=== PATIENT | female | born 1945 | race Caucasian/White ===

== ENCOUNTER 2016-12-05 09:57 | Day surgery (SDC) | payer MEDICARE, OTHER ==
[2016-12-05] MEDS ORDERED: LACTATED RINGERS 1,000 ML IV ONE (10:12)
[2016-12-05] MEDS ORDERED: ceFAZolin 1 GM VIAL ONE (10:14)
[2016-12-05] MEDS ORDERED: BUPIVACAINE 0.25%-EPI 1:200000 PF 30 ML VIAL SUBQ ONE ×2 (10:57)
[2016-12-05] MEDS ORDERED: ACETAMINOPHEN 1,000 MG/100 ML VIAL IV ONE (11:13)
[2016-12-05] MEDS ORDERED: KETOROLAC 30 MG/ML VIAL IVP ONE (11:13)
[2016-12-05] MEDS ORDERED: PROPOFOL 200 MG/20 ML VIAL IVP ONE (11:13)
[2016-12-05] MEDS ORDERED: LIDOCAINE-MPF 2% 5 ML VIAL IM ONE (11:13)
== END 2016-12-05 09:58 | disposition home or self-care (01) ==
PROC: 0SPG04Z Removal of Internal Fixation Device from Left Ankle Joint, Open Approach (ICD-10-PCS; principal; 2016-12-05 11:00)
DX: T84.84XA Pain due to internal orthopedic prosthetic devices, implants and grafts, initial encounter (principal); M25.572 Pain in left ankle and joints of left foot; Y83.1 Surgical operation with implant of artificial internal device as the cause of abnormal reaction of the patient, or of later complication, without mention of misadventure at the time of the procedure; I25.2 Old myocardial infarction; K21.9 Gastro-esophageal reflux disease without esophagitis; I25.10 Atherosclerotic heart disease of native coronary artery without angina pectoris; F32.9 Major depressive disorder, single episode, unspecified; I10 Essential (primary) hypertension; E78.5 Hyperlipidemia, unspecified; M19.90 Unspecified osteoarthritis, unspecified site; F41.9 Anxiety disorder, unspecified; G89.29 Other chronic pain; M54.5 Low back pain; Z86.718 Personal history of other venous thrombosis and embolism; Z79.82 Long term (current) use of aspirin; Z87.891 Personal history of nicotine dependence; Z91.041 Radiographic dye allergy status; Z95.5 Presence of coronary angioplasty implant and graft; Z90.49 Acquired absence of other specified parts of digestive tract; Z96.652 Presence of left artificial knee joint; Z87.81 Personal history of (healed) traumatic fracture
CPT/HCPCS: 20680; J0131; J7120

== ENCOUNTER 2017-01-31 08:05 | Outpatient (CLI) | payer MEDICARE, OTHER | END 2017-01-31 08:06 | disposition home or self-care (01) | DX: R01.1 Cardiac murmur, unspecified (principal); I08.2 Rheumatic disorders of both aortic and tricuspid valves ==

== ENCOUNTER 2017-03-06 06:10 | Inpatient (IN) | payer MEDICARE, OTHER ==
[2017-03-06] MEDS ORDERED: ceFAZolin 2 GM/50 ML 50 ML IV ONE (06:41)
[2017-03-06] MEDS ORDERED: LACTATED RINGERS 1,000 ML IV ONE ×2 (07:00→09:38)
[2017-03-06] MEDS ORDERED: NEOSTIGMINE 1 MG/1 ML 10 ML MDV IVP ONE (08:00)
[2017-03-06] MEDS ORDERED: ROCURONIUM 50 MG/5 ML VIAL IVP ONE (08:00)
[2017-03-06] MEDS ORDERED: MORPHINE PF 5 MG/10 ML AMP EP ONE (08:00)
[2017-03-06] MEDS ORDERED: fentaNYL 100 MCG/2 ML VIAL IVP ONE (08:00)
[2017-03-06] MEDS ORDERED: DEXAMETHASONE 4 MG/ML VIAL IVP ONE (08:00)
[2017-03-06] MEDS ORDERED: TRANEXAMIC ACID 1,000 MG/10 ML VIAL IV ONE (08:00)
[2017-03-06] MEDS ORDERED: LIDOCAINE-MPF 2% 5 ML VIAL IM ONE (08:00)
[2017-03-06] MEDS ORDERED: ACETAMINOPHEN 1,000 MG/100 ML VIAL IV ONE (08:00)
[2017-03-06] MEDS ORDERED: ONDANSETRON 4 MG/2 ML VIAL IVP ONE (08:00)
[2017-03-06] MEDS ORDERED: PROPOFOL 200 MG/20 ML VIAL IVP ONE (08:00)
[2017-03-06] MEDS ORDERED: HYDROmorphone 1 MG/ML SYRINGE IVP ONE (08:00)
[2017-03-06] MEDS ORDERED: GLYCOPYRROLATE 1 MG/5 ML VIAL IVP ONE (08:00)
[2017-03-06] MEDS ORDERED: ePHEDrine 50 MG/ML AMP IVP ONE (08:00)
[2017-03-06] MEDS ORDERED: KETOROLAC 30 MG/ML VIAL IVP ONE (08:00)
[2017-03-06] MEDS ORDERED: ROPIVACAINE 0.5% PF 20 ML AMPULE EP ONE (08:00)
[2017-03-06] MEDS ORDERED: KETOROLAC 15 MG/ML VIAL IM ONE (08:50)
[2017-03-06] MEDS ORDERED: ROPIVACAINE 0.5% PF 20 ML AMPULE SUBQ ONE (08:50)
[2017-03-06] MEDS ORDERED: MORPHINE PF 5 MG/10 ML AMP SUBQ ONE (08:56)
[2017-03-06] MEDS ORDERED: EPINEPHrine 1 MG/ML AMP SUBQ ONE (08:57)
[2017-03-06] MEDS ORDERED: SENNA 8.6 MG TABLET PO PRN (09:42)
[2017-03-06] MEDS ORDERED: BISACODYL 10 MG SUPP PR PRN (09:42)
[2017-03-06] MEDS ORDERED: ACETAMINOPHEN 325 MG TABLET PO PRN (09:42)
[2017-03-06] MEDS ORDERED: ALPRAZolam 0.25 MG TABLET PO PRN (09:45)
[2017-03-06] MEDS ORDERED: traZODone 50 MG TABLET PO PRN (09:45)
[2017-03-06] MEDS: HYDROmorphone 1 MG/ML SYRINGE IVP PRN ×3 (09:55→12:46)
[2017-03-06] MEDS: HYDROcod/ACETAM 5/325 MG TABLET PO PRN ×3 (11:23→21:27)
[2017-03-06] MEDS: ceFAZolin 2 GM/50 ML 50 ML IV SCH ×2 (14:09→21:33)
[2017-03-06] MEDS: SODIUM CHLORIDE FLUSH 0.9% 10 ML SYRINGE IVP SCH ×2 (14:10→14:53)
[2017-03-06] MEDS: ATORVASTATIN 10 MG TABLET PO SCH (21:27)
[2017-03-06] MEDS: HYDROXYUREA 500 MG CAPSULE PO SCH (21:28)
[2017-03-06] MEDS: SODIUM CHLORIDE FLUSH 0.9% 10 ML SYRINGE IVP PRN (21:33)
[2017-03-07] MEDS: HYDROcod/ACETAM 5/325 MG TABLET PO PRN ×5 (01:08→18:45)
[2017-03-07] MEDS: PANTOPRAZOLE 40 MG TABLET PO SCH (06:04)
[2017-03-07] MEDS: SODIUM CHLORIDE FLUSH 0.9% 10 ML SYRINGE IVP SCH ×3 (06:04→21:57)
[2017-03-07] MEDS: SERTRALINE 50 MG TABLET PO SCH (08:13)
[2017-03-07] MEDS: CHOLECALCIFEROL 1,000 UNIT TABLET PO SCH (08:13)
[2017-03-07] MEDS: POLYETHYLENE GLYCOL 3350 17 GM PACKET PO SCH (08:13)
[2017-03-07] MEDS: LOSARTAN 50 MG TABLET PO SCH (08:15)
[2017-03-07] MEDS ORDERED: METOPROLOL TARTRATE 25 MG TABLET PO SCH (09:00)
[2017-03-07] MEDS: ASPIRIN 325 MG TABLET PO SCH ×2 (09:22→21:57)
[2017-03-07] MEDS: HYDROmorphone 1 MG/ML SYRINGE IVP PRN ×5 (09:22→21:56)
[2017-03-07] MEDS: SODIUM CHLORIDE FLUSH 0.9% 10 ML SYRINGE IVP PRN ×2 (17:09→19:30)
[2017-03-07] MEDS: ATORVASTATIN 10 MG TABLET PO SCH (21:57)
[2017-03-07] MEDS: METOPROLOL TARTRATE 50 MG TABLET PO SCH (21:57)
[2017-03-07] MEDS: HYDROXYUREA 500 MG CAPSULE PO SCH (21:59)
[2017-03-08] MEDS: ONDANSETRON 4 MG/2 ML VIAL IVP PRN ×2 (01:47→08:19)
[2017-03-08] MEDS: HYDROcod/ACETAM 5/325 MG TABLET PO PRN ×2 (03:46→10:20)
[2017-03-08] MEDS: PANTOPRAZOLE 40 MG TABLET PO SCH (06:04)
[2017-03-08] MEDS: SODIUM CHLORIDE FLUSH 0.9% 10 ML SYRINGE IVP SCH ×3 (06:05→22:05)
[2017-03-08] MEDS: SERTRALINE 50 MG TABLET PO SCH (08:13)
[2017-03-08] MEDS: ASPIRIN 325 MG TABLET PO SCH ×2 (08:13→20:37)
[2017-03-08] MEDS: POLYETHYLENE GLYCOL 3350 17 GM PACKET PO SCH (08:14)
[2017-03-08] MEDS: CHOLECALCIFEROL 1,000 UNIT TABLET PO SCH (08:14)
[2017-03-08] MEDS: DOCUSATE SODIUM 250 MG CAPSULE PO SCH (08:14)
[2017-03-08] MEDS: LOSARTAN 50 MG TABLET PO SCH (08:14)
[2017-03-08] MEDS: CALCIUM CARBONATE CHEW 500 MG TABLET PO SCH ×2 (09:57→20:37)
[2017-03-08] MEDS: HYDROmorphone 1 MG/ML SYRINGE IVP PRN (11:16)
[2017-03-08] MEDS ORDERED: LACTATED RINGERS 1,000 ML IV STA (11:36)
[2017-03-08] MEDS ORDERED: PROCHLORPERAZINE 25 MG SUPP PR PRN (11:38)
[2017-03-08] MEDS: MORPHINE 2 MG/ML SYRINGE IVP PRN ×2 (12:03→19:10)
[2017-03-08] MEDS: oxyCOD/ACETAMIN 5 MG/325 MG TABLET PO PRN ×2 (16:24→22:55)
[2017-03-08] MEDS: ATORVASTATIN 10 MG TABLET PO SCH (20:37)
[2017-03-08] MEDS: METOPROLOL TARTRATE 50 MG TABLET PO SCH (20:37)
[2017-03-08] MEDS: HYDROXYUREA 500 MG CAPSULE PO SCH (20:41)
[2017-03-09] MEDS: MORPHINE 2 MG/ML SYRINGE IVP PRN ×2 (02:24→08:52)
[2017-03-09] MEDS: SODIUM CHLORIDE FLUSH 0.9% 10 ML SYRINGE IVP PRN ×2 (02:24→08:52)
[2017-03-09] MEDS: oxyCOD/ACETAMIN 5 MG/325 MG TABLET PO PRN ×2 (05:35→09:45)
[2017-03-09] MEDS: PANTOPRAZOLE 40 MG TABLET PO SCH (05:35)
[2017-03-09] MEDS: SODIUM CHLORIDE FLUSH 0.9% 10 ML SYRINGE IVP SCH (05:35)
[2017-03-09] MEDS: CHOLECALCIFEROL 1,000 UNIT TABLET PO SCH (09:43)
[2017-03-09] MEDS: ASPIRIN 325 MG TABLET PO SCH (09:43)
[2017-03-09] MEDS: DOCUSATE SODIUM 250 MG CAPSULE PO SCH (09:44)
[2017-03-09] MEDS: LOSARTAN 50 MG TABLET PO SCH (09:44)
[2017-03-09] MEDS: SERTRALINE 50 MG TABLET PO SCH (09:44)
[2017-03-09] MEDS: CALCIUM CARBONATE CHEW 500 MG TABLET PO SCH (09:45)
[2017-03-09] MEDS: POLYETHYLENE GLYCOL 3350 17 GM PACKET PO SCH (09:45)
== END 2017-03-09 11:45 | disposition home or self-care (01) | DRG 470 ==
PROC: 0SRC0J9 Replacement of Right Knee Joint with Synthetic Substitute, Cemented, Open Approach (ICD-10-PCS; principal; 2017-03-06 07:30)
DX: M17.11 Unilateral primary osteoarthritis, right knee (principal); I11.9 Hypertensive heart disease without heart failure; I25.10 Atherosclerotic heart disease of native coronary artery without angina pectoris; E78.5 Hyperlipidemia, unspecified; F32.9 Major depressive disorder, single episode, unspecified; K21.9 Gastro-esophageal reflux disease without esophagitis; K59.00 Constipation, unspecified; M54.9 Dorsalgia, unspecified; G89.29 Other chronic pain; H53.9 Unspecified visual disturbance; Z96.652 Presence of left artificial knee joint; Z95.5 Presence of coronary angioplasty implant and graft; I25.2 Old myocardial infarction; Z87.442 Personal history of urinary calculi; Z86.718 Personal history of other venous thrombosis and embolism; Z87.891 Personal history of nicotine dependence

== ENCOUNTER 2017-08-28 10:01 | Emergency (ER) | payer MEDICARE, OTHER ==
--- NOTE | 2017-08-28 12:12 | ED Physician Documentation ---
PD HPI BACK PAIN - Stated complaint Stated Complaint: HIP/BACK PX - Chief complaint Chief Complaint: Back Pain - History obtained from History obtained from: Patient - History of Present Illness Timing - onset: How many days ago (2-3) Timing - duration: Days Timing - details: Gradual onset (no noted injury nor fall, has had some low back pain in the past. This is progressively worse the past few days, left low back radiating to left hip. No weakness nor numbness in legs.), Still present Location: Lower, Left Quality: Pain, Aching. No: Spasm, Tearing Associated symptoms: No: Fever, Weakness, Numbness, Incontinent of urine Improves with: No: Rest Worsened by: Movement, Twisting Contributing factors: No: Twisting, Trauma Recently seen: Not recently seen Review of Systems Constitutional: denies: Fever, Chills Cardiac: denies: Chest pain / pressure GI: denies: Abdominal Pain Skin: denies: Rash, Lesions Musculoskeletal: reports: Back pain. 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) Cardiovascular: Coronary stent HEENT: Cataracts, Tonsil/Adenoidectomy Derm: Skin cancer surgery - Present Medications Home Medications: Ambulatory Orders Medication Instructions Recorded Confirmed Alprazolam [Xanax] 1 mg PO Q8HR PRN 03/26/13 08/28/17 Sertraline HCl [Zoloft] 100 mg PO DAILY 03/26/13 08/28/17 traZODone [Desyrel] 50 mg PO HS PRN 03/26/13 08/28/17 Hydroxyurea [Hydrea] 500 mg PO QPM 04/24/13 08/28/17 Omeprazole [PriLOSEC] 20 mg PO DAILY 08/06/14 08/28/17 Cholecalciferol (Vitamin D3) 2,000 unit PO DAILY 10/18/15 08/28/17 [Vitamin D3] Mv-Mn/FA/Vit K1/Lycop/Lut/Zeax 1 each PO DAILY 10/18/15 08/28/17 [Ocuvite Eye + Multi Tablet] Simvastatin 20 mg PO QPM 10/18/15 08/28/17 Telmisartan [Micardis] 80 mg PO DAILY 10/18/15 08/28/17 Metoprolol Succinate 50 mg PO DAILY 03/06/17 08/28/17 Aspirin [Román] 325 mg PO ONCE #30 tablet 03/09/17 08/28/17 Dexamethasone [Decadron] 4 mg PO DAILY #5 tablet 08/28/17 Methocarbamol [Robaxin] 500 mg PO Q6H PRN #25 tablet 08/28/17 Oxycodone HCl/Acetaminophen 1 each PO Q6H PRN #20 tablet 08/28/17 [Percocet 5-325 mg Tablet] - Allergies Allergies/Adverse Reactions: Allergies Allergy/AdvReac Type Severity Reaction Status Date / Time Iodinated Contrast- Oral and Allergy Severe Anaphylaxis Verified 03/06/17 09:50 IV Dye IV contrast Allergy Severe Anaphylaxis Uncoded 10/18/15 10:57 - Social History Does the pt smoke?: No Smoking Status: Never smoker Does the pt drink ETOH?: No Does the pt have substance abuse?: No - Immunizations Immunizations are current?: No Immunizations: TDAP >10years/unknown PD ED PE NORMAL - Vitals Vital signs reviewed: Yes - General General: Alert and oriented X 3, Well developed/nourished - Cardiac Cardiac: RRR, No murmur - Respiratory Respiratory: Clear bilaterally - Abdomen Abdomen: Soft, Non tender - Back Back: Other (tender lower lumbar area both sides, but also tender to percussion in middle. ) - Derm Derm: Normal color, Warm and dry, No rash - Extremities Extremities: No edema, No calf tenderness / cord - Neuro Neuro: No motor deficit, No sensory deficit Results - Vitals Vitals: Vital Signs - 24 hr 08/28/17 08/28/17 08/28/17 10:06 11:56 14:26 Temperature 36.1 C L 36.0 C L 36.2 C L Heart Rate 62 55 L 56 L Respiratory 18 15 12 Rate Blood Pressure 170/76 H 135/78 H 155/79 H O2 Saturation 98 99 99 Oxygen O2 Source Room air - Rads (name of study) lumbar CT Radiology: Prelim report reviewed (degenerative changes, no fractures/bone lesions) PD MEDICAL DECISION MAKING - ED course Complexity details: reviewed results (diffuse degenerative changes; no compression fractures, bone lesions. ), considered differential, d/w patient Departure - Departure Disposition: 01 Home, Self Care Clinical Impression: Acute exacerbation of chronic low back pain Condition: Stable Record reviewed to determine appropriate education?: Yes Instructions: ED Low Back Pain Injury Follow-Up: Vidal Chan DO [Primary Care Provider] - Prescriptions: Dexamethasone [Decadron] 4 mg PO DAILY #5 tablet Methocarbamol [Robaxin] 500 mg PO Q6H PRN #25 tablet PRN Reason: Spasms Oxycodone HCl/Acetaminophen [Percocet 5-325 mg Tablet] 1 each PO Q6H PRN #20 tablet PRN Reason: Pain Comments: For the exacerbation of the back pain currently, use Decadron daily for 5 more days as an anti-inflammatory. Be sure to take it with some food. Methocarbamol for muscle spasms and stiffness 3-4 times a day. Use Tylenol or Percocet if needed for pain. I would suggest mechanical treatment such as chiropractic or massage or physical therapy as well. Follow-up with your primary care if not improved over the next week. Call for an appointment. Discharge Date/Time: 08/28/17 14:38
[2017-08-28] MEDS ORDERED: oxyCOD/ACETAMIN 5 MG/325 MG TABLET PO ONE (12:36)
[2017-08-28] MEDS ORDERED: METHOCARBAMOL 500 MG TABLET PO ONE (12:36)
[2017-08-28] MEDS ORDERED: DEXAMETHASONE 10 MG/ML VIAL ONE (12:36)
[2017-08-28] MEDS ORDERED: CHERRY SYRUP 10 ML UDC PO ONE (12:37)
[2017-08-28] MEDS: METHOCARBAMOL 500 MG TABLET PO STA (12:45)
[2017-08-28] MEDS: oxyCOD/ACETAMIN 5 MG/325 MG TABLET PO STA (12:45)
[2017-08-28] MEDS: DEXAMETHASONE 10 MG/ML VIAL PO STA (12:45)
--- NOTE | 2017-08-28 13:53 | CT Report ---
EXAM: CT LUMBAR SPINE WITHOUT CONTRAST EXAM DATE: 08/28/2017 12:48 PM. CLINICAL HISTORY: 72-year-old woman with new onset left lumbar pain a few days ago. COMPARISONS: CT of the abdomen and pelvis on 12/25/2009. TECHNIQUE: Thin-section axial images were acquired of the lumbar spine from T12 to S1 without contras t. Post-processing: Coronal and sagittal reformats. Other: None. In accordance with CT protocol optimization, one or more of the following dose reduction techniques w ere utilized for this exam: automated exposure control, adjustment of mA and/or KV based on patient s ize, or use of iterative reconstructive technique. FINDINGS: Alignment: Convex left scoliosis centered at L2-L3 is present, as on the 2010 CT. Left lateral listhe sis of L1 on L2 measures approximately 9 mm and left lateral listhesis of L3 and L4 measures approxim ately 8 mm. Bones: Five qso-sjq-[id number] lumbar vertebral bodies are present. No fractures or bone lesions. Degene rative endplate sclerosis is present at L1-L2, L2-L3, and L3-L4 on the left and L4-L5 on the right, c orresponding to the concave aspects of the scoliosis. Schmorl's nodes are present in the superior and inferior endplates of L4. Disk Levels/Facets: T12-L1: There is mild disk height loss, right side worse than left. Mild vacuum disk phenomenon is pr esent. No significant narrowing of the bony central canal or neural foramina. L1-L2: There is severe disk height loss. No significant narrowing of the bony central canal. Facet hy pertrophy results in mild to moderate narrowing of the left neural foramen without significant narrow ing on the right. L2-L3: There is moderate to severe disk height loss, left side worse and right. Posterior osteophyte results in mild narrowing of the bony central canal. Facet hypertrophy and disk osteophyte complex in the subarticular spaces result in mild narrowing of the left neural foramen without significant narr owing on the right. L3-L4: There is moderate to severe disk height loss with vacuum disk phenomenon. Facet hypertrophy an d posterior osteophyte results in at least moderate narrowing of the bony central canal. Facet hypert rophy and disk osteophyte complex in the subarticular spaces result in moderate narrowing of the left neural foramen and mild narrowing on the right. L4-L5: There is moderate to severe disk height loss, right side worse than left, and vacuum disk phen omenon. Facet hypertrophy and posterior disk osteophyte complex result in mild to moderate narrowing of the bony central canal. Facet hypertrophy and disk osteophyte complex in the subarticular spaces r esult in mild to moderate right neural foramen and mild narrowing on the left. L5-S1: There is solid bony fusion across the disk space. Status post posterior decompression with montero inectomy. No significant central canal stenosis. Disk osteophyte complex in the subarticular space re sults in mild narrowing of the neural foramina bilaterally. Musculature: Post surgical changes are present in the posterior soft tissues of the lower lumbar spin e. Other: Status post cholecystectomy. Atherosclerotic calcifications are present in the major arteries. IMPRESSION: 1. No acute fracture or malalignment. 2. Convex right degenerative scoliosis centered at L2-L3 with associated lateral listhesis at. L1-L2 and L3-L4. 3. Degenerative changes result in the following: - L1-L2: Mild to moderate narrowing of the left neural foramen. - L2-L3: Mild narrowing of the bony central canal. Mild narrowing of the left neural foramen. - L3-L4: At least moderate narrowing of the bony central canal. Moderate narrowing of the left neural foramen and mild narrowing on the right. - L4-L5: Mild to moderate narrowing of the bony central canal. Mild to moderate narrowing of the righ t neural foramen and mild narrowing on the left. - L5-S1: Status post posterior decompression with laminectomy. Mild narrowing of the neural foramina bilaterally. [facility] Referring Provider Line: [phone] SITE ID: [id number]
[2017-08-28 14:27] VITALS: BP 155/79
== END 2017-08-28 14:38 | disposition home or self-care (01) ==
LOC: ED 10:01
DX: M54.5 Low back pain (principal); G89.29 Other chronic pain; M25.552 Pain in left hip; I10 Essential (primary) hypertension; I25.2 Old myocardial infarction; E78.00 Pure hypercholesterolemia, unspecified; K21.9 Gastro-esophageal reflux disease without esophagitis; M19.90 Unspecified osteoarthritis, unspecified site; Z85.828 Personal history of other malignant neoplasm of skin; Z87.442 Personal history of urinary calculi; Z79.82 Long term (current) use of aspirin
CPT/HCPCS: 72131; 99283; A9270

== ENCOUNTER 2020-03-10 22:10 | Emergency (ER) | payer MEDICARE, OTHER ==
--- NOTE | 2020-03-10 22:26 | ED Physician Documentation ---
PD HPI BACK PAIN - Stated complaint Stated Complaint: R BACK PAIN - Chief complaint Chief Complaint: Back Pain - History obtained from History obtained from: Patient - History of Present Illness Timing - onset: Yesterday Timing - duration: Days (2) Timing - details: Gradual onset, Still present, Waxing and waning Location: Lower, Right Quality: Pain, Spasm, Aching Associated symptoms: No: Fever, Weakness, Numbness, Incontinent of urine Improves with: No: Rest Worsened by: Movement, Twisting. No: Lifting, Palpation Contributing factors: No: Lifting, Twisting, Trauma Similar symptoms before: Has not had sx before (She has had back surgery remotely many years ago. She has intermittent back pain episodes but this is more consistently not associated with direct moving and was not provoked by lifting or movement.) Recently seen: Not recently seen Review of Systems Constitutional: denies: Fever, Chills Nose: denies: Rhinorrhea / runny nose, Congestion Throat: denies: Sore throat Cardiac: denies: Chest pain / pressure, Pedal edema, Calf pain Respiratory: denies: Cough GI: denies: Abdominal Pain, Nausea, Vomiting, Diarrhea, Bloody / black stool : denies: Dysuria, Frequency, Vaginal bleeding Skin: denies: Rash, Lesions Neurologic: denies: Focal weakness, Numbness, Near syncope PD PAST MEDICAL HISTORY - Past Medical History Past Medical History: Yes Cardiovascular: Hypertension, High cholesterol, [place] Respiratory: None Endocrine/Autoimmune: None GI: GERD : Kidney stones HEENT: Chronic vision loss, Chronic sinusitis, Other Psych: Depression, Anxiety Musculoskeletal: Osteoarthritis, Chronic back pain Derm: None - Past Surgical History Past Surgical History: Yes General: Cholecystectomy, Other Ortho: Knee replacement, Spine surgery, 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) Cardiovascular: Coronary stent HEENT: Cataracts, Tonsil/Adenoidectomy Derm: Skin cancer surgery - Present Medications Home Medications: Ambulatory Orders Medication Instructions Recorded Confirmed Alprazolam [Xanax] 1 mg PO Q8HR PRN 03/26/13 03/10/20 Sertraline HCl [Zoloft] 100 mg PO DAILY 03/26/13 03/10/20 traZODone [Desyrel] 50 mg PO HS PRN 03/26/13 03/10/20 Omeprazole [PriLOSEC] 20 mg PO DAILY 08/06/14 03/10/20 Cholecalciferol (Vitamin D3) 2,000 unit PO DAILY 10/18/15 03/10/20 [Vitamin D3] Simvastatin 20 mg PO QPM 10/18/15 03/10/20 Telmisartan [Micardis] 80 mg PO DAILY 10/18/15 03/10/20 Metoprolol Succinate 50 mg PO DAILY 03/06/17 03/10/20 Aspirin [Román] 325 mg PO ONCE #30 tablet 03/09/17 03/10/20 Oxycodone HCl/Acetaminophen 1 each PO Q6H PRN #20 tablet 08/28/17 03/10/20 [Percocet 5-325 mg Tablet] Hydroxyurea [Hydrea] 500 mg PO DAILY 11/10/19 03/10/20 Hydrocodone/Acetaminophen 1 each PO TID PRN #15 tablet 03/11/20 [Hydrocodon-Acetaminophen 5-325] Naproxen 375 mg PO BID #20 tablet 03/11/20 - Allergies Allergies/Adverse Reactions: Allergies Allergy/AdvReac Type Severity Reaction Status Date / Time Iodinated Contrast Media Allergy Severe Anaphylaxis Verified 03/10/20 22:18 IV contrast Allergy Severe Anaphylaxis Uncoded 03/10/20 22:18 - Social History Does the pt smoke?: No Smoking Status: Never smoker Does the pt drink ETOH?: No Does the pt have substance abuse?: No - Immunizations Immunizations are current?: No Immunizations: TDAP >10years/unknown - POLST Patient has POLST: No PD ED PE NORMAL - Vitals Vital signs reviewed: Yes - General General: Alert and oriented X 3, Well developed/nourished, Other - Cardiac Cardiac: RRR, No murmur - Respiratory Respiratory: Clear bilaterally - Abdomen Abdomen: Soft, Non tender - Female Female : Deferred - Rectal Rectal: Deferred - Back Back: No CVA TTP, No spinal TTP (she is mildly tender in the right paralumbar area muscles. No redness nor sores. ) - Derm Derm: Normal color, Warm and dry, No rash - Extremities Extremities: No edema, No calf tenderness / cord - Neuro Neuro: Alert and oriented X 3, No motor deficit, No sensory deficit, Normal speech Results - Vitals Vitals: Vital Signs - 24 hr 03/10/20 03/10/2020 22:10 23:40 00:19 Temperature 36.9 C 36.7 C Heart Rate 77 67 71 Respiratory 18 16 16 Rate Blood Pressure 195/86 H 161/71 H 165/63 H O2 Saturation 95 95 95 Oxygen O2 Source Room air - Labs Labs: Laboratory Tests 03/10/20 22:50 Urine Color YELLOW Urine Clarity CLEAR Urine pH 6.0 Ur Specific [place] >=1.030 H Urine Protein NEGATIVE Urine Glucose (UA) NEGATIVE Urine Ketones NEGATIVE Urine Occult Blood NEGATIVE Urine Nitrite NEGATIVE Urine Bilirubin NEGATIVE Urine Urobilinogen 0.2 (NORMAL) Ur Leukocyte Esterase NEGATIVE Ur Microscopic Review NOT INDICATED Urine Culture Comments NOT INDICATED - Rads (name of study) KUB CT Radiology: Prelim report reviewed (no stones nor renal abnormal. NO fractures/acute bony process. ), See rad report PD MEDICAL DECISION MAKING - ED course Complexity details: reviewed results, re-evaluated patient (Improved with medicines here in the ER. Presume musculoskeletal pain given normal urine and CT scan.), considered differential (She has some pain with motion and slight tenderness in the muscles but not as notably as I do expect from just muscular pain. She has a more consistent pain at rest as well. We will get a urine and CT to ensure no stones or other process.), d/w patient Departure - Departure Disposition: 01 Home, Self Care Clinical Impression: Acute right-sided low back pain Qualifiers: Sciatica presence: without sciatica Qualified Code(s): M54.5 - Low back pain Condition: Stable Record reviewed to determine appropriate education?: Yes Instructions: ED Low Back Pain Injury Follow-Up: Vidal Chan DO [Primary Care Provider] - Prescriptions: Hydrocodone/Acetaminophen [Hydrocodon-Acetaminophen 5-325] 1 each PO TID PRN #15 tablet PRN Reason: pain Naproxen 375 mg PO BID #20 tablet Comments: Your urine test is clear. Your CT scan did not show any obvious acute cause for the pain. Presume it is musculoskeletal at this point and treated with some anti-inflammatories such as naproxen. To that add Tylenol 4 times a day or hydrocodone for worse pain. Recheck if not improving well over the next several days to a week. Your recheck or follow-up with your primary care if not improved well or if other symptoms develop. Discharge Date/Time: 03/11/20 00:22
[2020-03-10 23:05] LABS: BILIRUBIN,URINE NEGATIVE (NEGATIVE); GLUCOSE, URINE (UA) NEGATIVE (NEGATIVE); KETONES,URINE (UA) NEGATIVE (NEGATIVE); LEUKOCYTE ESTERASE, URINE NEGATIVE (NEGATIVE); NITRITE,URINE NEGATIVE (NEGATIVE); OCCULT BLOOD,URINE NEGATIVE (NEGATIVE); PROTEIN,URINE NEGATIVE (NEGATIVE); UROBILINOGEN,URINE 0.2 (NORMAL) E.U./dL (NORMAL)
[2020-03-10] MEDS: KETOROLAC 30 MG/ML VIAL IM STA (23:06)
[2020-03-10] MEDS: HYDROcod/ACETAM 5/325 MG TABLET PO STA (23:06)
[2020-03-10 23:08] LABS: CLARITY,URINE CLEAR (CLEAR)
--- NOTE | 2020-03-10 23:55 | CT Report ---
Reason: right flank to lumbar area pain; no injury Procedure Date: 03/10/2020 Accession Number: [id number] / [id number] Procedure: CT - Abdomen/Pelvis WO CPT Code: Final Report FULL RESULT: EXAM: CT ABDOMEN AND PELVIS (CT KUB) EXAM DATE: 03/10/2020 11:08 PM. CLINICAL HISTORY: Right flank to lumbar area pain; no injury. COMPARISONS: ABD/PEL 12/25/2009 9:15 AM. TECHNIQUE: Routine axial helical CT imaging was performed through the abdomen and pelvis without IV contrast. Reconstructions: Coronal and sagittal. In accordance with CT protocol optimization, one or more of the following dose reduction techniques were utilized for this exam: automated exposure control, adjustment of mA and/or KV based on patient size, or use of iterative reconstructive technique. FINDINGS: Lung Bases: Unremarkable. Right Kidney/Ureter: No stones, hydronephrosis, or hydroureter. No perinephric fat stranding. Left Kidney/Ureter: No stones, hydronephrosis, or hydroureter. No perinephric fat stranding. Other Solid Organs: The liver is unremarkable. There are cysts in the dome of the liver smaller and less conspicuous than on the prior study. The spleen is enlarged similar to the prior exam. The pancreas is unremarkable. There are hypertrophic changes of the left adrenal gland similar to the prior exam. No renal masses. Gallbladder/Bile Ducts: Resected. Peritoneal Cavity: No free fluid, free air or hari adenopathy. Bowel is grossly unremarkable. Pelvic Organs: No bladder stones or wall thickening. Noncontrast images of the visualized pelvic organs are unremarkable. Vasculature: Unremarkable. Other: There are degenerative changes of the lumbar spine and scoliosis of the thoracolumbar spine. IMPRESSION: 1. No evidence for renal calculi. 2. Scoliosis and degenerative changes of the lumbar spine. [facility]
[2020-03-11] MEDS: HYDROcod/ACET 5/325 Prepack 4 PO STA (00:15)
[2020-03-11 00:20] VITALS: BP 165/63
== END 2020-03-11 00:22 | disposition home or self-care (01) ==
LOC: ED 22:10
DX: M54.5 Low back pain (principal); I10 Essential (primary) hypertension; I25.2 Old myocardial infarction
CPT/HCPCS: 74176; 81003; 96372; 99284; A9270; 81001; 87086

== ENCOUNTER 2020-03-27 20:36 | Emergency (ER) | payer MEDICARE, OTHER ==
--- NOTE | 2020-03-27 21:14 | ED Physician Documentation ---
History of Present Illness - Stated complaint Stated Complaint: LT FOOT PX - Chief complaint Chief Complaint: Ext Problem - History obtained from History obtained from: Patient - History of Present Illness Timing: Today Pain level max: 8 Pain level now: 6 - Additonal information Additional information: 74-year-old female with left foot pain today. Does not recall any injury. Worse with walking, better with rest. Took Tylenol without relief. States she feels that the foot is swollen. No fever. No redness. 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) Cardiovascular: Coronary stent HEENT: Cataracts, Tonsil/Adenoidectomy Derm: Skin cancer surgery - Present Medications Home Medications: Ambulatory Orders Medication Instructions Recorded Confirmed Alprazolam [Xanax] 1 mg PO Q8HR PRN 03/26/13 03/23/20 Sertraline HCl [Zoloft] 100 mg PO DAILY 03/26/13 03/23/20 traZODone [Desyrel] 50 mg PO HS PRN 03/26/13 03/23/20 Omeprazole [PriLOSEC] 20 mg PO DAILY 08/06/14 03/23/20 Simvastatin 20 mg PO QPM 10/18/15 03/23/20 Telmisartan [Micardis] 80 mg PO DAILY 10/18/15 03/23/20 Metoprolol Succinate 50 mg PO DAILY 03/06/17 03/23/20 Oxycodone HCl/Acetaminophen 1 each PO Q6H PRN #20 tablet 08/28/17 03/23/20 [Percocet 5-325 mg Tablet] Hydroxyurea [Hydrea] 1,000 mg PO DAILY 11/10/19 03/23/20 Hydrocodone/Acetaminophen 1 each PO TID PRN #15 tablet 03/11/20 03/23/20 [Hydrocodon-Acetaminophen 5-325] Naproxen 375 mg PO BID #20 tablet 03/11/20 03/23/20 Anagrelide HCl 1 mg PO DAILY 03/23/20 03/23/20 Aspirin [Adult Aspirin Regimen] 81 mg PO DAILY 03/23/20 03/23/20 Hydrocodone/Acetaminophen 1 - 2 each PO Q6H PRN #14 tablet 03/27/20 [Hydrocodon-Acetaminophen 5-325] - Allergies Allergies/Adverse Reactions: Allergies Allergy/AdvReac Type Severity Reaction Status Date / Time Iodinated Contrast Media Allergy Severe Anaphylaxis Verified 03/27/20 20:41 IV contrast Allergy Severe Anaphylaxis Uncoded 03/27/20 20:41 - Social History Does the pt smoke?: No Smoking Status: Never smoker Does the pt drink ETOH?: No Does the pt have substance abuse?: No - Immunizations Immunizations are current?: No Immunizations: TDAP >10years/unknown - POLST Patient has POLST: No PD ED PE NORMAL - Vitals Vital signs reviewed: Yes - General General: Alert and oriented X 3, No acute distress - HEENT HEENT: Moist mucous membranes - Neck Neck: Supple, no meningeal sign - Derm Derm: Warm and dry - Extremities Extremities: Other (L foot - mild diffuse TTP. no deformity. NVI. no erythema or warmth.) - Neuro Neuro: Alert and oriented X 3 Results - Vitals Vitals: Vital Signs - 24 hr 03/27/20 03/27/20 20:41 22:05 Temperature 36.5 C Heart Rate 74 75 Respiratory 18 20 Rate Blood Pressure 151/88 H 170/96 H O2 Saturation 98 97 Oxygen O2 Source Room air - Rads (name of study) Left foot x-ray Radiology: Prelim report reviewed, EMP read contemporaneously, See rad report (Osteopenia without acute fracture or abnormality) PD MEDICAL DECISION MAKING - ED course Complexity details: reviewed results, re-evaluated patient, considered differential, d/w patient ED course: Placed in a walking boot for comfort. Unclear etiology of her symptoms. We will trial on pain medication for home as well. If she fails to improve over the next few days, she will return for evaluation. No evidence of infection, gout, displaced fracture. Patient counseled regarding signs and symptoms for which I believe and urgent re-evaluation would be necessary. Patient with good understanding of and agreement to plan and is comfortable going home at this time This document was made in part using voice recognition software. While efforts are made to proofread this document, sound alike and grammatical errors may occur. Departure - Departure Disposition: 01 Home, Self Care Clinical Impression: Foot pain, left Condition: Good Instructions: ED Joint Pain, ED Sprain Foot Follow-Up: Vidal Chan DO [Primary Care Provider] - Within 1 week Prescriptions: Hydrocodone/Acetaminophen [Hydrocodon-Acetaminophen 5-325] 1 - 2 each PO Q6H PRN #14 tablet PRN Reason: pain Comments: Wear the boot as needed for comfort. Return if you worsen. Your x-ray does not show any acute abnormalities today, but you do have arthritis in the foot. Do not drink alcohol or drive while on narcotic pain medicine. Note that many narcotic pain relievers also contain tylenol/acetaminophen. Please ensure that your total dose of acetaminophen from all sources does not exceed 3 grams (3000mg) per day. You may constipated on this medication, take a stool softener such as "Colace" twice a day while you are on it. Also recommend a [id number] laxative such as senna or MiraLAX any day that you do not have a bowel movement. If you received narcotic pain medication in the emergency department, do not drive or operate machinery for the next 24 hours. Discharge Date/Time: 03/27/20 22:17
[2020-03-27] MEDS ORDERED: HYDROcod/ACETAM 5/325 MG TABLET PO STA (21:46)
--- NOTE | 2020-03-27 21:49 | XRAY Report ---
Reason: L foot pain Procedure Date: 03/27/2020 Accession Number: [id number] / [id number] Procedure: XR - Foot 3 View LT CPT Code: Final Report FULL RESULT: EXAM: LEFT FOOT RADIOGRAPHY EXAM DATE: 03/27/2020 09:33 PM. CLINICAL HISTORY: L foot pain. COMPARISON: FOOT 3 VIEW LT 06/11/2015 5:00 PM. TECHNIQUE: 3 views. FINDINGS: Bones: Patchy osteopenia. No fractures or bone lesions. Joints: Normal. No subluxations. Soft Tissues: Normal. No soft tissue swelling. IMPRESSION: Patchy osteopenia. No acute osseous or articular abnormality. [facility]
[2020-03-27 22:16] VITALS: BP 170/96
== END 2020-03-27 22:17 | disposition home or self-care (01) ==
LOC: ED 20:36
DX: M79.672 Pain in left foot (principal); I10 Essential (primary) hypertension
CPT/HCPCS: 73630; 99283; 99284; A9270

== ENCOUNTER 2020-07-07 15:14 | Outpatient (CLI) | payer MEDICARE, OTHER ==
[2020-07-07 15:31] LABS: BASOPHILS # (AUTO) 0.1 10^3/uL (0.0-0.1); BASOPHILS % (AUTO) 0.9 %; EOSINOPHILS % (AUTO) 0.3 %; HGB - HEMOGLOBIN 16.9 g/dL (12.0-16.0); LYMPHOCYTES # (AUTO) 0.6 10^3/uL (1.5-3.5); LYMPHOCYTES % (AUTO) 5.4 %; MEAN CORPUSCULAR HEMOGLOBIN 32.3 pg (27.0-31.0); MEAN CORPUSCULAR VOLUME 92.2 fL (81.0-99.0); MEAN PLATELET VOLUME 9.6 fL (7.9-10.8); MONOCYTES # (AUTO) 0.1 10^3/uL (0.0-1.0); MONOCYTES % (AUTO) 0.6 %; NEUTROPHILS # (AUTO) 9.6 10^3/uL (1.5-6.6); NEUTROPHILS % (AUTO) 92.3 %; RED BLOOD COUNT 5.24 10^6/uL (4.20-5.40); RED CELL DISTRIBUTION WIDTH 14.1 % (12.0-15.0); WHITE BLOOD COUNT 10.4 x10^3/uL (4.8-10.8)
[2020-07-07 15:36] LABS: PLT - PLATELET COUNT 909 10^3/uL (130-450)
[2020-07-07 15:49] LABS: ALBUMIN 5.1 g/dL (3.2-5.5); ALBUMIN/GLOBULIN RATIO 1.8 (1.0-2.2); ALKALINE PHOSPHATASE 78 IU/L (42-121); ALT ALANINE AMINOTRANSFERASE 27 IU/L (10-60); AST ASPARTATE AMINOTRANSFERASE 32 IU/L (10-42); BILIRUBIN,TOTAL 1.5 mg/dL (0.2-1.0); BUN - BLOOD UREA NITROGEN 17 mg/dL (6-20); CALCIUM 10.2 mg/dL (8.5-10.3); CARBON DIOXIDE - CO2 21 mmol/L (21-32); CHLORIDE 102 mmol/L (101-111); CREATININE 0.8 mg/dL (0.4-1.0); GLUCOSE 190 mg/dL (70-100); SODIUM 137 mmol/L (135-145); TOTAL PROTEIN 7.9 g/dL (6.7-8.2)
[2020-07-07 15:50] LABS: CRP - C-REACTIVE PROTEIN < 1.0 mg/dL (0-1.0)
== END 2020-07-07 15:15 | disposition home or self-care (01) ==
LOC: LAB 15:14
PROVIDERS: ATTEND Physician Assistant
DX: M79.672 Pain in left foot (principal); D47.3 Essential (hemorrhagic) thrombocythemia; I10 Essential (primary) hypertension
CPT/HCPCS: 36415; 80053; 85025; 85651; 86140

== ENCOUNTER 2020-07-07 15:41 | Emergency (ER) | payer MEDICARE, OTHER ==
--- NOTE | 2020-07-07 16:19 | ED Physician Documentation ---
History of Present Illness - Stated complaint Stated Complaint: LT FOOT RODRIGUEZ/STINGS - Chief complaint Chief Complaint: Ext Problem - Additonal information Additional information: 75-year-old female presents to the emergency department for evaluation of left foot pain. She was seen for similar 4 days ago and had x-rays that suggested arthritis. Since being seen she feels that the pain is worsening. Especially on the sole of the left foot. She has no swelling or erythema. She has no open sores or lesions. She does have a history of thrombocytosis and does see hematology oncology. However with this history she does not have any history of DVTs or arterial insufficiency. 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 surgery) Cardiovascular: Coronary stent HEENT: Cataracts, Tonsil/Adenoidectomy Derm: Skin cancer surgery - Present Medications Home Medications: Ambulatory Orders Medication Instructions Recorded Confirmed Alprazolam [Xanax] 1 mg PO Q8HR PRN 03/26/13 07/03/20 Sertraline HCl [Zoloft] 100 mg PO DAILY 03/26/13 07/03/20 traZODone [Desyrel] 50 mg PO HS PRN 03/26/13 07/03/20 Omeprazole [PriLOSEC] 20 mg PO DAILY 08/06/14 07/03/20 Simvastatin 20 mg PO QPM 10/18/15 07/03/20 Telmisartan [Micardis] 80 mg PO DAILY 10/18/15 07/03/20 Metoprolol Succinate 50 mg PO DAILY 03/06/17 07/03/20 Hydroxyurea [Hydrea] 1,000 mg PO DAILY 11/10/19 07/03/20 Naproxen 375 mg PO BID #20 tablet 03/11/20 07/03/20 Aspirin [Adult Aspirin Regimen] 81 mg PO DAILY 03/23/20 07/03/20 Anagrelide HCl 1 mg PO BID #60 06/01/20 07/03/20 Hydrocodone/Acetaminophen 1 - 2 tab PO Q6H PRN #10 tablet 07/03/20 [Hydrocodone-Acetamin 5-325 mg] Hydrocodone/Acetaminophen 1 each PO BID PRN #10 tablet 07/07/20 [Hydrocodone-Acetamin 5-325 mg] - Allergies Allergies/Adverse Reactions: Allergies Allergy/AdvReac Type Severity Reaction Status Date / Time Iodinated Contrast Media Allergy Severe Anaphylaxis Verified 07/07/20 16:02 IV contrast Allergy Severe Anaphylaxis Uncoded 07/07/20 16:02 - Social History Does the pt smoke?: No Smoking Status: Never smoker Does the pt drink ETOH?: No Does the pt have substance abuse?: No - Immunizations Immunizations are current?: No Immunizations: TDAP >10years/unknown - POLST Patient has POLST: No PD ED PE NORMAL - General General: Alert and oriented X 3, No acute distress, Well developed/nourished - Neck Neck: Supple, no meningeal sign - Cardiac Cardiac: RRR, No murmur - Respiratory Respiratory: No respiratory distress - Abdomen Abdomen: Normal bowel sounds, Soft - Derm Derm: Normal color, Warm and dry - Extremities Extremities: No deformity, Normal ROM s pain, No calf tenderness / cord, Other (Tenderness with palpation of the sole of the left foot. There is no swelling or erythema of the foot. No swelling of the left leg. No calf pain tenderness.). No: No tenderness to palpate - Neuro Neuro: Alert and oriented X 3, steam room attendant 2-12 intact Eye Opening: Spontaneous Motor: Obeys Commands Verbal: Oriented GCS Score: 15 Results - Vitals Vitals: Vital Signs - 24 hr 07/07/20 15:57 Temperature 36.0 C L Heart Rate 103 H Respiratory 16 Rate Blood Pressure 156/99 H O2 Saturation 95 Oxygen O2 Source Room air - Rads (name of study) US DVT left leg Radiology: Final report received (No acute deep vein thrombosis seen) PD MEDICAL DECISION MAKING - ED course Complexity details: reviewed results, d/w patient, d/w family ED course: 75-year-old female presents to the emergency department for evaluation of left foot pain at the behest of her primary care doctor. She does have a history of thrombocytosis and despite being seen 4 days ago patient reports that her left foot pain is worse. The primary care provider's concern is that she may have a DVT in the left leg. On exam the left leg and foot appear on swollen peer. There is no erythema. I do appreciate tenderness with palpation of the sole of the left foot raising concern that she may have plantar fasciitis. - Ultrasound DVT completed and it does not show any signs of blood clot. - Her foot is neither swollen nor erythematous. She has no fevers nor open so sores or lesion. My suspicion for acute infection is exceedingly low. - I will prescribe a limited number of Vicodin for pain control at home and have advised her to follow-up closely with a developmental electronics assembler. This may be intra-articular arthritis versus a plantar fasciitis. Departure - Departure Disposition: , Self Care Clinical Impression: Left foot pain Condition: Stable Record reviewed to determine appropriate education?: Yes Instructions: Plantar Fasciitis Tx Follow-Up: [facility] [Provider Group] Prescriptions: Hydrocodone/Acetaminophen [Hydrocodone-Acetamin 5-325 mg] 1 each PO BID PRN #10 tablet PRN Reason: Pain Comments: The ultrasound of your leg does not show any blood clots. At this time I think the cause of your foot pain is most likely plantar fasciitis or an exacerbation of your arthritis. Let us have you follow-up with the developmental electronics assembler next week if you are able to. Please call tomorrow to schedule the appointment. I have prescribed a limited amount of Vicodin to help with pain at home. If you can tolerate it ibuprofen can be an alternative for pain management. Return here if you have foot swelling, foot redness any fevers or red streaking.
[2020-07-07] MEDS ORDERED: HYDROcod/ACETAM 5/325 MG TABLET PO STA (16:43)
--- NOTE | 2020-07-07 17:12 | Ultrasound Report ---
PROCEDURE: Duplex Ext Veins Left INDICATIONS: foot pain; thrombocytosis; r/o dvt TECHNIQUE: Real-time imaging, as well as color and pulse Doppler interrogation, were performed of the lower extr emity deep veins from the inguinal ligament to the popliteal fossa. COMPARISON: None. FINDINGS: The deep veins are normally compressible, and free of intraluminal thrombus. Color and pu lse Doppler demonstrate normal phasic intraluminal flow. There is normal augmentation response to di stal compression maneuver. IMPRESSION: No evidence of DVT in visualized left lower extremity veins. Reviewed by: Dennis Contreras MD on 07/07/2020 4:10 PM ANNY Approved by: Dennis Contreras MD on 07/07/2020 4:10 PM [id number] Station ID: [id number]
[2020-07-07 17:27] VITALS: BP 129/91
== END 2020-07-07 17:26 | disposition home or self-care (01) ==
LOC: ED 15:41
DX: M79.672 Pain in left foot (principal); D47.3 Essential (hemorrhagic) thrombocythemia; I10 Essential (primary) hypertension
CPT/HCPCS: 36415; 80053; 85025; 85651; 86140; 93971; 99281; 99284; A9270

== ENCOUNTER 2020-07-09 15:32 | Emergency (ER) | payer MEDICARE, OTHER ==
[2020-07-09] MEDS ORDERED: oxyCODONE 5 MG TABLET PO STA (18:15)
[2020-07-09] MEDS ORDERED: MELOXICAM 7.5 MG TABLET PO STA (18:15)
--- NOTE | 2020-07-09 18:18 | ED Physician Documentation ---
History of Present Illness - Stated complaint Stated Complaint: BILAT FOOT PX - Chief complaint Chief Complaint: Ext Problem - History obtained from History obtained from: Patient - History of Present Illness Timing: Other (several months) Pain level max: 8 Pain level now: 8 - Additonal information Additional information: 75-year-old female presents the emergency department complaining of left foot pain. Worse with walking, better with rest. Has been going on for several months, states it is not improving. Saw her doctor yesterday, was started on hydrocodone and prednisone. No fall. No trauma. Has already had x-rays performed. 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 (Cervical surgery) Cardiovascular: Coronary stent HEENT: Cataracts, Tonsil/Adenoidectomy Derm: Skin cancer surgery - Present Medications Home Medications: Ambulatory Orders Medication Instructions Recorded Confirmed Alprazolam [Xanax] 1 mg PO Q8HR PRN 03/26/13 07/03/20 Sertraline HCl [Zoloft] 100 mg PO DAILY 03/26/13 07/03/20 traZODone [Desyrel] 50 mg PO HS PRN 03/26/13 07/03/20 Omeprazole [PriLOSEC] 20 mg PO DAILY 08/06/14 07/03/20 Simvastatin 20 mg PO QPM 10/18/15 07/03/20 Telmisartan [Micardis] 80 mg PO DAILY 10/18/15 07/03/20 Metoprolol Succinate 50 mg PO DAILY 03/06/17 07/03/20 Hydroxyurea [Hydrea] 1,000 mg PO DAILY 11/10/19 07/03/20 Naproxen 375 mg PO BID #20 tablet 03/11/20 07/03/20 Aspirin [Adult Aspirin Regimen] 81 mg PO DAILY 04/28/20 08/08/20 Anagrelide HCl 1 mg PO BID #60 06/01/20 07/03/20 Hydrocodone/Acetaminophen 1 - 2 tab PO Q6H PRN #10 tablet 07/03/20 [Hydrocodone-Acetamin 5-325 mg] Hydrocodone/Acetaminophen 1 each PO BID PRN #10 tablet 07/07/20 [Hydrocodone-Acetamin 5-325 mg] Meloxicam [Mobic] 15 mg PO DAILY PRN #20 tablet 07/09/20 Oxycodone HCl 5 - 10 mg PO Q6H PRN #14 tablet 07/09/20 - Allergies Allergies/Adverse Reactions: Allergies Allergy/AdvReac Type Severity Reaction Status Date / Time Iodinated Contrast Media Allergy Severe Anaphylaxis Verified 07/09/20 15:45 IV contrast Allergy Severe Anaphylaxis Uncoded 07/09/20 15:45 - Social History Does the pt smoke?: No Smoking Status: Never smoker Does the pt drink ETOH?: No Does the pt have substance abuse?: No - Immunizations Immunizations are current?: No Immunizations: TDAP >10years/unknown - POLST Patient has POLST: No PD ED PE NORMAL - Vitals Vital signs reviewed: Yes - General General: Alert and oriented X 3, Well developed/nourished - HEENT HEENT: Moist mucous membranes - Neck Neck: Supple, no meningeal sign - Derm Derm: Warm and dry - Extremities Extremities: Other (Left foot - Tenderness to palpation over the plantar aspect of the left foot. Pain with passive extension of the toes. No bony tenderness. No skin changes. Neurovascular intact. Otherwise normal examination. Normal sensation.) - Neuro Neuro: Alert and oriented X 3 - Psych Psych: Normal mood, Normal affect Results - Vitals Vitals: Vital Signs - 24 hr 07/09/20 07/09/20 15:40 18:30 Temperature 36.6 C 36.8 C Heart Rate 103 H 99 Respiratory 18 16 Rate Blood Pressure 133/93 H 148/89 H O2 Saturation 96 99 Oxygen O2 Source Room air PD MEDICAL DECISION MAKING - ED course Complexity details: reviewed old records, considered differential, d/w patient ED course: Patient with left foot plantar fasciitis. Placed in a postoperative shoe. Will place on anti-inflammatories for home. We will have her follow-up with her doctor for physical therapy. Patient counseled regarding signs and symptoms for which I believe and urgent re-evaluation would be necessary. Patient with good understanding of and agreement to plan and is comfortable going home at this time This document was made in part using voice recognition software. While efforts are made to proofread this document, sound alike and grammatical errors may occur. Departure - Departure Disposition: 01 Home, Self Care Clinical Impression: Plantar fasciitis Condition: Good Instructions: ED Plantar Fasciitis Follow-Up: Patty Morris PA [Primary Care Provider] - Within 1 week Prescriptions: Meloxicam [Mobic] 15 mg PO DAILY PRN #20 tablet PRN Reason: pain Oxycodone HCl 5 - 10 mg PO Q6H PRN #14 tablet PRN Reason: pain Comments: Wear a hard soled shoe as this will help to decrease the movement in the plantar fascia. Follow-up with your doctor for further care. Physical therapy may help as well your doctor can refer you to this Do not drink alcohol or drive while on narcotic pain medicine. Note that many narcotic pain relievers also contain tylenol/acetaminophen. Please ensure that your total dose of acetaminophen from all sources does not exceed 3 grams (3000mg) per day. You may constipated on this medication, take a stool softener such as "Colace" twice a day while you are on it. Also recommend a [id number]-[id number] laxative such as senna or MiraLAX any day that you do not have a bowel movement. If you received narcotic pain medication in the emergency department, do not drive or operate machinery for the next 24 hours. Discharge Date/Time: 07/09/20 18:32
[2020-07-09 18:31] VITALS: BP 148/89
== END 2020-07-09 18:32 | disposition home or self-care (01) ==
LOC: ED 15:32
DX: M72.2 Plantar fascial fibromatosis (principal); I10 Essential (primary) hypertension; Z79.82 Long term (current) use of aspirin
CPT/HCPCS: 99282; 99284; A9270

== ENCOUNTER 2020-07-15 17:31 | Emergency (ER) | payer MEDICARE, OTHER ==
[2020-07-15] MEDS ORDERED: HYDROmorphone 1 MG/ML CARPUJECT IVP STA (18:23)
--- NOTE | 2020-07-15 18:27 | ED Physician Documentation ---
History of Present Illness - Stated complaint Stated Complaint: LT FOOT/CALF PX - Chief complaint Chief Complaint: Ext Problem - Additonal information Additional information: 75-year-old female returns to the emergency department for chief complaint of left foot pain that now is radiating up to her calf and knee. She reports that her left foot was mildly swollen this morning. She was seen here for similar a bout 1 week ago and an x-ray was negative for acute fracture. It was thought that she may have arthritis at the distal foot or plantar fasciitis. Patient has been taking pain medication and a muscle relaxer at home without relief. No fevers, no cough no dyspnea. She denies chest pains. She denies any history of blood clots or cancer. She is not anticoagulated. No recent travel. pmh: htn meds: asa 81 mg, muscle relaxer, mycarditis Review of Systems Constitutional: denies: Fever, Chills Nose: denies: Congestion, Epistaxis Cardiac: reports: Calf pain. denies: Chest pain / pressure, Palpitations, Pedal edema Respiratory: denies: Dyspnea, Cough GI: denies: Abdominal Pain, Abdominal Swelling, Nausea, Vomiting : denies: Dysuria Musculoskeletal: reports: Extremity pain (left foot) Neurologic: denies: Generalized weakness, Focal weakness, Syncope, Seizure PD PAST MEDICAL HISTORY - Past Medical History Cardiovascular: Hypertension, High cholesterol, [place] Respiratory: None Neuro: None Endocrine/Autoimmune: None GI: GERD CPC: None : Kidney stones HEENT: Chronic vision loss, Chronic sinusitis, Other Psych: Depression, Anxiety Musculoskeletal: Osteoarthritis, Chronic back pain Derm: None - Past Surgical History Past Surgical History: Yes General: Cholecystectomy, Other Ortho: Knee replacement, Spine surgery, Other /CPC: LEEP (Cervical surgery) Cardiovascular: Coronary stent HEENT: Cataracts, Tonsil/Adenoidectomy Derm: Skin cancer surgery - Present Medications Home Medications: Ambulatory Orders Medication Instructions Recorded Confirmed Alprazolam [Xanax] 1 mg PO Q8HR PRN 03/26/13 07/03/20 Sertraline HCl [Zoloft] 100 mg PO DAILY 03/26/13 07/03/20 traZODone [Desyrel] 50 mg PO HS PRN 03/26/13 07/03/20 Omeprazole [PriLOSEC] 20 mg PO DAILY 08/06/14 07/03/20 Simvastatin 20 mg PO QPM 10/18/15 07/03/20 Telmisartan [Micardis] 80 mg PO DAILY 10/18/15 07/03/20 Metoprolol Succinate 50 mg PO DAILY 03/06/17 07/03/20 Hydroxyurea [Hydrea] 1,000 mg PO DAILY 11/10/19 07/03/20 Naproxen 375 mg PO BID #20 tablet 03/11/20 07/03/20 Aspirin [Adult Aspirin Regimen] 81 mg PO DAILY 03/23/20 07/03/20 Anagrelide HCl 1 mg PO BID #60 06/01/20 07/03/20 Hydrocodone/Acetaminophen 1 - 2 tab PO Q6H PRN #10 tablet 07/03/20 [Hydrocodone-Acetamin 5-325 mg] Hydrocodone/Acetaminophen 1 each PO BID PRN #10 tablet 07/07/20 [Hydrocodone-Acetamin 5-325 mg] Meloxicam [Mobic] 15 mg PO DAILY PRN #20 tablet 07/09/20 Oxycodone HCl 5 - 10 mg PO Q6H PRN #14 tablet 07/09/20 - Allergies Allergies/Adverse Reactions: Allergies Allergy/AdvReac Type Severity Reaction Status Date / Time Iodinated Contrast Media Allergy Severe Anaphylaxis Verified 07/15/20 17:42 IV contrast Allergy Severe Anaphylaxis Uncoded 07/15/20 17:42 - Social History Does the pt smoke?: No Smoking Status: Never smoker Does the pt drink ETOH?: No ETOH Use: Wine Does the pt have substance abuse?: No - Immunizations Immunizations are current?: Yes Immunizations: TDAP >10years/unknown - POLST Patient has POLST: No PD ED PE NORMAL - General General: Alert and oriented X 3, No acute distress - HEENT HEENT: PERRL, EOMI - Cardiac Cardiac: RRR. No: No murmur (systolic murmur) - Respiratory Respiratory: No respiratory distress, Clear bilaterally - Abdomen Abdomen: Normal bowel sounds, Soft - Back Back: No: No CVA TTP, No spinal TTP - Derm Derm: No: Normal color, Warm and dry - Extremities Extremities: No: No tenderness to palpate (Tenderness with palpation on the sole of the foot at the joints of the metatarsals and phalanx of all the toes. There is no swelling or LESLYE. The pain is worse as she steps down with her foot and does radiate up to the calf. There is very mild pedal edema of the left leg in comparison to the right), No calf tenderness / cord (tenderness with palpation left posterior calf. 2+ DP pulse bilaterally. warm extremeties) Results - Vitals Vitals: Vital Signs - 24 hr 07/15/20 07/15/20 17:37 17:52 Temperature 37.0 C 36.9 C Heart Rate 93 95 Respiratory 18 16 Rate Blood Pressure 216/123 H 155/76 H O2 Saturation 98 100 Oxygen O2 Source Room air PD MEDICAL DECISION MAKING - ED course Complexity details: reviewed old records, reviewed results, considered differential, d/w patient ED course: 75-year-old male delete female presents to the emergency department for evaluation of left foot pain that extends to the calf. She does have some mild edema of that left leg. There is no erythema or skin changes to suggest cellulitis. She has had no fevers. I have reviewed her chart thoroughly. She has had 4 emergency department visits for this leg pain. Ultrasound and x-ray imaging have not yielded the cause of the pain. She does report that she has an upcoming podiatry appointment which I have encouraged her to keep. At this time no further imaging is offered today and patient is agreeable to this plan. Departure - Departure Disposition: 01 Home, Self Care Clinical Impression: Left leg pain Condition: Stable Record reviewed to determine appropriate education?: Yes Comments: Elisha I think that it is important that you continue to follow-up with your doctors for this left leg pain. Your x-ray and ultrasound images have not shown blood clots or findings of fracture. It is likely that this is an exacerbation of your arthritis or plantar fasciitis. Return to the emergency department if you have leg swelling, leg redness, chest pain, difficulty breathing.
[2020-07-15 19:26] VITALS: BP 119/67
== END 2020-07-15 19:25 | disposition home or self-care (01) ==
LOC: ED 17:31
DX: M79.672 Pain in left foot (principal); M79.662 Pain in left lower leg; R60.0 Localized edema; I10 Essential (primary) hypertension; Z79.82 Long term (current) use of aspirin
CPT/HCPCS: 96374; 99284; J1170

== ENCOUNTER 2020-07-29 14:46 | Emergency (ER) | payer MEDICARE, OTHER ==
--- NOTE | 2020-07-29 15:29 | ED Physician Documentation ---
History of Present Illness - Stated complaint Stated Complaint: LFT SIDE PX - Chief complaint Chief Complaint: Abd Pain - History obtained from History obtained from: Patient - History of Present Illness Timing: How many days ago (4) - Additonal information Additional information: 75-year-old female presents to the emergency department for evaluation of left upper quadrant abdominal pain. She reports that it has been fairly constant for the last 4 days. She denies any fevers, vomiting or bloody stools. She states that the pain is her abdomen isworse when she takes a deep breath but denies that she has chest pain, any pleuritic chest pain, any cough or dyspnea. she denies leg swelling or calf pain tenderness. US DVT in mid june showed no DVT Patient denies any constipation, melena or hematochezia. She states that she has had unremarkable colonoscopies in the past and does not carry a diagnosis of diverticulosis. She has tried Tums without relief of the pain. 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 A myocardial infarction in 12/2009 led to this diagnosis. She is followed by heme/onc. She has had progressive rise in her platelet count since the diagnosis but has had no untoward side effects such as DVT or PE. In reviewing the heme/onc notes (07/27/2020) they ave increased her hydroxurea from 1000 mg to 1500 mg daily. There is concern about compliance with the anagrelide (1mg bid) due to patient compliance or available of medication Review of Systems Constitutional: reports: Reviewed and negative, Other. denies: Myalgias, Fatigue, Weight Loss, Sweats Eyes: reports: Reviewed and negative, Other. denies: Loss of vision, Decreased vision, Photophobia, Discharge, Irritation Ears: denies: Loss of hearing, Ear pain, Drainage/discharge, Tinnitus/ringing, Foreign body, Reviewed and negative, Other Nose: denies: Rhinorrhea / runny nose, Congestion, Epistaxis, Sinus pressure / pain, Foreign Body, Reviewed and negative, Other Throat: reports: Reviewed and negative Cardiac: reports: Reviewed and negative. denies: Pedal edema, Calf pain Respiratory: denies: Dyspnea, Cough, Hemoptysis, Wheezing GI: reports: Abdominal Pain. 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: None : Kidney stones HEENT: Chronic vision loss, Chronic sinusitis, Other Psych: Depression, Anxiety Musculoskeletal: Osteoarthritis, Chronic back pain Derm: None - Past Surgical History Past Surgical History: Yes General: Cholecystectomy, Other Ortho: Knee replacement, Spine surgery, Other /ASSOCIATE SPA DIRECTOR: LEEP (Cervical surgery) Cardiovascular: Coronary stent HEENT: Cataracts, Tonsil/Adenoidectomy Derm: Skin cancer surgery - Present Medications Home Medications: Ambulatory Orders Medication Instructions Recorded Confirmed Alprazolam [Xanax] 1 mg PO Q8HR PRN 03/26/13 07/27/20 Sertraline HCl [Zoloft] 100 mg PO DAILY 03/26/13 07/27/20 traZODone [Desyrel] 50 mg PO HS PRN 03/26/13 07/27/20 Omeprazole [PriLOSEC] 20 mg PO DAILY 08/06/14 07/27/20 Simvastatin 20 mg PO QPM 10/18/15 07/27/20 Telmisartan [Micardis] 80 mg PO DAILY 10/18/15 07/27/20 Metoprolol Succinate 50 mg PO DAILY 03/06/17 07/27/20 Naproxen 375 mg PO BID #20 tablet 03/11/20 07/27/20 Aspirin [Adult Aspirin Regimen] 81 mg PO DAILY 03/23/20 07/27/20 Anagrelide HCl 1 mg PO BID #60 06/01/20 07/27/20 Hydrocodone/Acetaminophen 1 - 2 tab PO Q6H PRN #10 tablet 07/03/20 07/27/20 [Hydrocodone-Acetamin 5-325 mg] Hydrocodone/Acetaminophen 1 each PO BID PRN #10 tablet 07/07/20 07/27/20 [Hydrocodone-Acetamin 5-325 mg] Meloxicam [Mobic] 15 mg PO DAILY PRN #20 tablet 07/09/20 07/27/20 Oxycodone HCl 5 - 10 mg PO Q6H PRN #14 tablet 07/09/20 07/27/20 Hydroxyurea [Hydrea] 1,500 mg PO DAILY #90 capsule 07/28/20 - Allergies Allergies/Adverse Reactions: Allergies Allergy/AdvReac Type Severity Reaction Status Date / Time Iodinated Contrast Media Allergy Severe Anaphylaxis Verified 07/29/20 15:02 IV contrast Allergy Severe Anaphylaxis Uncoded 07/29/20 15:02 - Social History Does the pt smoke?: No Smoking Status: Never smoker Does the pt drink ETOH?: No Does the pt have substance abuse?: No - Immunizations Immunizations are current?: Yes Immunizations: TDAP >10years/unknown - POLST Patient has POLST: No PD ED PE EXPANDED - General General: Alert, No acute distress, Well developed/nourished - HEENT HEENT: Atraumatic, PERRL - Neck Neck: Supple w/out meningeal sx. No: Adenopathy - Cardiac Cardiac: Regular Rate, Murmur Present, Radial strong equal, Femoral strong equal, Pedal strong equal, Cap refill < 2 sec - Respiratory Respiratory: Clear to ausultation jenny. No: Distress, Labored - Abdomen Abdomen: Normal Bowel sounds, Tender to palpation, LUQ (Mild left upper quadrant abdominal tenderness without guarding or rebound. Pain is demonstrated just under the left costophrenic angle of the anterior lateral lower ribs). No: Rebound, Guarding - Back Back: Normal exam, Normal ROM - Derm Derm: Normal color, Warm and dry. No: Petecchiae, Purpura - Extremities Extremities: Normal. No: Pedal edema bilateral - Neuro Neuro: Alert and Oriented X 3, CNII-XII intact, Normal speech - GCS Eye Opening: Spontaneous Motor: Obeys Commands Verbal: Oriented Total: 15 Results - Vitals Vitals: Vital Signs - 24 hr 07/29/20 07/29/20 07/29/20 14:55 15:02 17:02 Temperature 36.6 C Heart Rate 88 86 91 Respiratory 17 22 22 Rate Blood Pressure 184/91 H 174/79 H 179/84 H O2 Saturation 95 96 99 07/29/20 18:37 Temperature Heart Rate 83 Respiratory 18 Rate Blood Pressure 170/74 H O2 Saturation 99 Oxygen O2 Source Room air - EKG (time done) 1527 Rate: Rate (enter#) (88) Rhythm: NSR [place]: Normal Intervals: Normal CO, RBBB, Other (LPFB) Ischemia: Other Compare to prior EKG: Changed from prior EKG (new RBBB a change from previous NSR in 2014) - Labs Labs: Laboratory Tests 07/29/20 07/29/20 07/29/20 15:23 15:23 15:23 WBC 14.9 H RBC 4.82 Hgb 15.2 Hct 44.3 MCV 91.9 MCH 31.5 H MCHC 34.3 RDW 13.6 Plt Count 1154 H* MPV 9.5 Neut # (Auto) 11.3 H Lymph # (Auto) 1.8 [place] # (Auto) 1.3 H Eos # (Auto) 0.4 Baso # (Auto) 0.1 Absolute Nucleated RBC 0.00 Nucleated RBC % 0.0 D-Dimer 475.1 H Sodium 137 Potassium 3.3 L Chloride 102 Carbon Dioxide 25 Anion Gap 10.0 BUN 10 Creatinine 0.8 Estimated GFR (MDRD) 70 L Glucose 118 H Lactic Acid Calcium 9.2 Total Bilirubin 1.0 AST 20 ALT 17 Alkaline Phosphatase 76 Troponin I High Sens Total Protein 6.9 Albumin 4.2 Globulin 2.7 Albumin/Globulin Ratio 1.6 Lipase 30 Urine Color Urine Clarity Urine pH Ur Specific [place] Urine Protein Urine Glucose (UA) Urine Ketones Urine Occult Blood Urine Nitrite Urine Bilirubin Urine Urobilinogen Ur Leukocyte Esterase Ur Microscopic Review Urine Culture Comments 07/29/20 07/29/20 07/29/20 15:23 16:10 17:20 WBC RBC Hgb Hct MCV MCH MCHC RDW Plt Count MPV Neut # (Auto) Lymph # (Auto) [place] # (Auto) Eos # (Auto) Baso # (Auto) Absolute Nucleated RBC Nucleated RBC % D-Dimer Sodium Potassium Chloride Carbon Dioxide Anion Gap BUN Creatinine Estimated GFR (MDRD) Glucose Lactic Acid 1.2 Calcium Total Bilirubin AST ALT Alkaline Phosphatase Troponin I High Sens 39.3 H* Total Protein Albumin Globulin Albumin/Globulin Ratio Lipase Urine Color YELLOW Urine Clarity CLEAR Urine pH 5.5 Ur Specific [place] >=1.030 H Urine Protein TRACE Urine Glucose (UA) NEGATIVE Urine Ketones 15 H Urine Occult Blood NEGATIVE Urine Nitrite NEGATIVE Urine Bilirubin NEGATIVE Urine Urobilinogen 0.2 (NORMAL) Ur Leukocyte Esterase NEGATIVE Ur Microscopic Review NOT INDICATED Urine Culture Comments NOT INDICATED 07/29/20 17:25 WBC RBC Hgb Hct MCV MCH MCHC RDW Plt Count MPV Neut # (Auto) Lymph # (Auto) [place] # (Auto) Eos # (Auto) Baso # (Auto) Absolute Nucleated RBC Nucleated RBC % D-Dimer Sodium Potassium Chloride Carbon Dioxide Anion Gap BUN Creatinine Estimated GFR (MDRD) Glucose Lactic Acid Calcium Total Bilirubin AST ALT Alkaline Phosphatase Troponin I High Sens 42.7 H* Total Protein Albumin Globulin Albumin/Globulin Ratio Lipase Urine Color Urine Clarity Urine pH Ur Specific [place] Urine Protein Urine Glucose (UA) Urine Ketones Urine Occult Blood Urine Nitrite Urine Bilirubin Urine Urobilinogen Ur Leukocyte Esterase Ur Microscopic Review Urine Culture Comments - Rads (name of study) cxr Radiology: Final report received (No acute cardiopulmonary pathology) MRI abdomen Radiology: Final report received (Mild splenomegaly. Geographic T1/T2 heterogeneous appearance of the spleen. Findings concerning for splenic infarct. No surrounding free fluid.) PD MEDICAL DECISION MAKING - ED course Complexity details: reviewed old records, reviewed results, re-evaluated patient, considered differential, d/w patient, d/w family, d/w insurance consultant (Tony (heme/onc); Kelvin Grewal (hospitalist)) ED course: 75-year-old female presents to the emergency department for evaluation of 3 to 4 days of left upper quadrant abdominal pain. This is in the setting of a known history of thrombocytosis. She has critically elevated platelets today at greater than 1000. Over the long-term they have continued to steadily rise. there is concern expressed to me by the patient's that she may not be compliant with her medications as prescribed. Though patient denies this 1600: ECG showed RBBB (new from last known ECG 2014). Trop mildly elevated at 39.3. will give 324 of asa. Trop will be repeated in 2 hours. However the LUQ abdominal pain is worrisome for possible splenic infarct. Because she has an iodine contrast allergy we will proceed with emergent MRI imaging for further evaluation. 1830: Patient's MRI is completed and is concerning for likely splenic infarct. I have discussed these findings with flight engineer inspector/oncologist Dr. Jimenez. Based on her laboratory values it is likely that patient is noncompliant with her hydroxyurea. If she was compliant we would expect more elevated MCV level. At this time because there is likely no surgical or medical intervention for splenic infarct she is okay to be discharged home with very close follow-up in the [facility] clinic on Sunday for repeat CBC. She is to begin taking the hydroxyurea 1000 mg daily in addition to her other medications. We did discuss the d-dimer elevation and it is likely a nonspecific elevation in this patient. She in point denies chest pain, shortness of breath dyspnea nor does she have any leg swelling or calf pain suggestive of a DVT. I did speak with Dr. Kelvin Grewal regarding her mildly elevated high sensitivity troponins. inital trop 39 and repeat trop 3 hours later was 42. This is not a true delta rise. In addition, patient does not have any complaints of chest pain and the elevated troponins may be reflective of her current disease state. We cannot utilize the heart score and her risk factors because she denies chest pain. However given her thrombocytosis she is at exceedingly high risk for [place], CVA, or other hematologic crisis. recommend close f/u with primary care provider for outpatient risk stratification, stress test and echo Patient will be discharged home. She is to have observed medication administration with her at home. If she develops any chest pain, shortness of breath slurred speech arm or leg weakness she will return immediately to the emergency department Departure - Departure Disposition: Home, Self Care Clinical Impression: Infarction of spleen, Thrombocytosis, Left upper quadrant abdominal pain Condition: Fair Record reviewed to determine appropriate education?: Yes Follow-Up: Robert Wheatley MD [Physician No Access] - 08/03/20 Comments: The MRI of your abdomen does suggest that you have a splenic infarction. This means that the platelets have clogged to the blood flow to the spleen. Typically there is no treatment for splenic infarcts. Elisha it is very important that you take your hydroxyurea and anagrelide as directed. You need to take 1000 mg of hydroxyurea a day. This is 2 pills. You must take the anagrelide 1 mg twice a day. Take this in the morning and then at night. Because your platelet count is so high you are at high risk of having a heart attack, stroke or developing blood clots that can cause damage to your internal organs. If over the weekend you develop any chest pain, have shortness of breath, have suddenly severe abdominal pain, slurred speech arm or leg weakness please return immediately to the emergency department. Please follow-up with the flight engineer inspector/oncologist in the [facility] clinic on Sunday for a repeat blood draw. Discharge Date/Time: 07/29/20 19:03
--- NOTE | 2020-07-29 15:32 | XRAY Report ---
PROCEDURE: Chest 1 View X-Ray INDICATIONS: chest pain TECHNIQUE: One view of the chest was acquired. COMPARISON: 06/07/2010 FINDINGS: Surgical changes and devices: None. Lungs and pleura: No pleural effusions or pneumothorax. Lungs are clear. Mediastinum: Mediastinal contours appear normal. Heart size is normal. Bones and chest wall: No suspicious bony lesions. Overlying soft tissues appear unremarkable. IMPRESSION: No acute cardiopulmonary pathology. Reviewed by: Dennis Contreras MD on 07/29/2020 3:31 PM PDT Approved by: Dennis Contreras MD on 07/29/2020 3:31 PM PDT Station ID: [id number]
[2020-07-29 15:34] LABS: BASOPHILS # (AUTO) 0.1 10^3/uL (0.0-0.1); BASOPHILS % (AUTO) 0.8 %; EOSINOPHILS # (AUTO) 0.4 10^3/uL (0.0-0.7); EOSINOPHILS % (AUTO) 2.3 %; HGB - HEMOGLOBIN 15.2 g/dL (12.0-16.0); LYMPHOCYTES # (AUTO) 1.8 10^3/uL (1.5-3.5); LYMPHOCYTES % (AUTO) 12.1 %; MEAN CORPUSCULAR HEMOGLOBIN 31.5 pg (27.0-31.0); MEAN CORPUSCULAR HGB CONC 34.3 g/dL (32.0-36.0); MEAN CORPUSCULAR VOLUME 91.9 fL (81.0-99.0); MEAN PLATELET VOLUME 9.5 fL (7.9-10.8); MONOCYTES # (AUTO) 1.3 10^3/uL (0.0-1.0); MONOCYTES % (AUTO) 8.8 %; NEUTROPHILS # (AUTO) 11.3 10^3/uL (1.5-6.6); NEUTROPHILS % (AUTO) 75.5 %; RED BLOOD COUNT 4.82 10^6/uL (4.20-5.40); RED CELL DISTRIBUTION WIDTH 13.6 % (12.0-15.0); WHITE BLOOD COUNT 14.9 x10^3/uL (4.8-10.8)
[2020-07-29 15:35] LABS: PLT - PLATELET COUNT 1154 10^3/uL (130-450)
[2020-07-29 15:42] LABS: ALBUMIN 4.2 g/dL (3.2-5.5); ALBUMIN/GLOBULIN RATIO 1.6 (1.0-2.2); CALCIUM 9.2 mg/dL (8.5-10.3); CREATININE 0.8 mg/dL (0.4-1.0); TOTAL PROTEIN 6.9 g/dL (6.7-8.2)
[2020-07-29] MEDS ORDERED: ASPIRIN CHEW 81 MG TABLET PO STA (16:07)
[2020-07-29] MEDS ORDERED: SODIUM CHLORIDE 0.9% 1,000 ML IV STA (16:29)
[2020-07-29 17:34] LABS: GLUCOSE, URINE (UA) NEGATIVE (NEGATIVE); KETONES,URINE (UA) 15 mg/dL (NEGATIVE); LEUKOCYTE ESTERASE, URINE NEGATIVE (NEGATIVE); NITRITE,URINE NEGATIVE (NEGATIVE); OCCULT BLOOD,URINE NEGATIVE (NEGATIVE); PH,URINE 5.5 PH (5.0-7.5); PROTEIN,URINE TRACE mg/dL (NEGATIVE); UROBILINOGEN,URINE 0.2 (NORMAL) E.U./dL (NORMAL)
[2020-07-29 17:39] LABS: BILIRUBIN,URINE NEGATIVE (NEGATIVE); CLARITY,URINE CLEAR (CLEAR); ICTOTEST,URINE NEGATIVE
--- NOTE | 2020-07-29 18:01 | MRI Report ---
PROCEDURE: Abdomen W/O INDICATIONS: eval for splenic infarct; contrast allergy TECHNIQUE: Coronal ultra fast SE through abdomen; axial 2D spoiled GE in- and [id number] Larson (with and witho ut fat saturation), and breath-hold T2 FSE from the hepatic dome to the bottom of the kidneys. Diffu aftab weighted imaging and ADC may be performed. COMPARISON: CT abdomen and pelvis without contrast 03/10/2020. FINDINGS: Image quality: Excellent. Other solid organs: Spleen has a geographic heterogeneous appearance on the T1 and T2 images. Hetero geneous appearance on the ADC map. The spleen measures 13.6 cm in craniocaudal dimension, (301/15). Liver is normal in size. No significant steatosis. Gallbladder is absent. Biliary system is non dil ated. Pancreas is normal in morphology. No pancreatic ductal dilatation. No adrenal nodules. No hydr onephrosis. Small simple cysts in the left kidney. Trace perinephric fluid. Nodes and vessels: No retroperitoneal or mesenteric adenopathy by size criteria. Aorta and inferior vena cava are normal in size. Bowel and peritoneum: Unenhanced bowel loops are normal in caliber throughout. No free fluid. Lung bases: No basal pleural effusions. Bones and soft tissues: No ventral hernias. Bone marrow is normal in overall signal. Scoliosis. IMPRESSION: Mild splenomegaly. Geographic T1/T2 heterogeneous appearance of the spleen. Findings concerning for s plenic infarct. No surrounding free fluid. Nuclear medicine sulfur colloid exam could be performed to confirm infarct. Reviewed by: Dominick Lagunas MD on 07/29/2020 5:00 PM ANNY Approved by: Dominick Lagunas MD on 07/29/2020 5:00 PM [id number] Station ID: [id number]
[2020-07-29 18:38] VITALS: BP 170/74
== END 2020-07-29 19:03 | disposition home or self-care (01) ==
LOC: ED 14:46
DX: D73.5 Infarction of spleen (principal); R10.12 Left upper quadrant pain; D47.3 Essential (hemorrhagic) thrombocythemia; R79.89 Other specified abnormal findings of blood chemistry; Z91.041 Radiographic dye allergy status; I45.2 Bifascicular block; I10 Essential (primary) hypertension; I25.2 Old myocardial infarction; Z95.5 Presence of coronary angioplasty implant and graft; Z79.82 Long term (current) use of aspirin
CPT/HCPCS: 36415; 71045; 74181; 80053; 81003; 83605; 83690; 84484; 85025; 85379; 93005; 96360; 99284; 99285; A9270; 81001; 87086

== ENCOUNTER 2021-08-02 09:45 | Outpatient (CLI) | payer MEDICARE, OTHER ==
--- NOTE | 2021-08-02 18:03 | CONSULTATION NOTE ---
Palliative Care Consultation - Referral Referring Provider: Jyoti Barrett PA-C Time of Visit: 945-09 Referral setting: Home Referral Reason: Medication adherence/ACP/Thrombocytosis - Information Sources Records reviewed: Previous records reviewed History/Review of Systems obtained from: Patient, Family (daughter Nanette present; Greg) Exam limitations: Clinical condition (patient with STM deficits; little insight into her illness) - History of Present Illness Brief History of Present Illness: This is a 76-year-old woman who has essential thrombocythemia since 08/2010, Liu 2 mutation positive. Was on oral medications, but became very difficult with her managing and concern for compliance. 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 As a result of the difficulty with med adherence she has been transitioned over to PEG interferon alpha subcu weekly since 05/09/2021. She is a high risk for complications related to her thrombocytosis including but not limited to further clots, DVTs, PEs, and stroke. Daughter Nanette has reached out with concerns regarding planning not only now what might be available but also in the future. Greg is quite resistant and defensive, and somewhat irrational in the barriers he is spitting up during our conversation as well as demonstrating some paranoia. Patient has very little insight into the seriousness of her illness, nor little understanding of the implications. She is quite easygoing and wanting to work on making a plan, and understand what resources may be out there. 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 Medical/Surgical History - Past Medical History Cardiovascular: reports: Hypertension, High cholesterol, [place] Respiratory: reports: Shortness of breath Neuro: Other (MCI) Endocrine/Autoimmune: reports: None GI: reports: GERD, Other (splenic infarct) CRANIOLOGIST: reports: None : reports: Kidney stones HEENT: reports: Chronic vision loss, Chronic sinusitis Psych: reports: Depression, Anxiety Musculoskeletal: reports: Osteoarthritis, Chronic back pain Derm: reports: None MRSA Hx?: No - Past Surgical History General: reports: Cholecystectomy Ortho: reports: Knee replacement, Spine surgery /CRANIOLOGIST: reports: LEEP (Cervical surgery) Cardiovascular: reports: Coronary stent HEENT: reports: Cataracts, Tonsil/Adenoidectomy Derm: reports: Skin cancer surgery - Substance History Use: Uses substance without health or social issues: NONE Social History - Living Situation Living arrangement: At home Living Situation: With spouse/s.o. Family History - Family History Family History: Mother: , Father: Medications/Allergies - Medications Home Medications: Ambulatory Orders Medication Instructions Recorded Confirmed Simvastatin 20 mg PO QPM 10/18/15 07/11/21 Telmisartan [Micardis] 80 mg PO DAILY 10/18/15 07/11/21 Aspirin [Adult Aspirin Regimen] 81 mg PO DAILY 03/23/20 07/11/21 Hydroxyurea 1,000 mg PO DAILY 08/25/20 07/11/21 Sertraline [Zoloft] 50 mg PO DAILY 08/25/20 07/11/21 - Allergies Allergies/Adverse Reactions: Allergies Allergy/AdvReac Type Severity Reaction Status Date / Time Iodinated Contrast Media Allergy Severe Anaphylaxis Verified 06/13/21 15:49 Review of Systems - Constitutional Constitutional: reports: Fatigue, Weakness. denies: Fever, Chills, Night sweats - Eyes Eyes: reports: Vision loss, Corrective lenses - Cardiovascular Cardiovascular: reports: Exertional dyspnea - Respiratory Respiratory: reports: SOB with exertion. denies: SOB at rest - Gastrointestinal Gastrointestinal: reports: Reflux/heartburn (occasional), Good appetite - Genitourinary Genitourinary: denies: Incontinence - Musculoskeletal Musculoskeletal: reports: Back pain, Stiffness, Muscle weakness, Joint pain (left shoulder pain x 4-5 days) - Integumentary Integumentary: reports: Dryness - Neurological Neurological: reports: General weakness, Memory problems (worsening; little insight; defers to family for many questions), Abnormal gait - Psychiatric Psychiatric: reports: Anxiety - Hematologic/Lymphatic Hematologic/Lymph: denies: Blood clots - All Other Systems All Other Systems: reports: Other (lilmited ROS) Physical Exam - Vital Signs Temperature: 97.5 C Pulse Rate: 72 Respiratory Rate: 18 O2 Saturation: 96 Blood Pressure: 132/70 - Physical Exam General Appearance: positive: No acute distress, Alert, Anxious Eyes Bilateral: positive: Normal inspection ENT: positive: No signs of dehydration Neck: positive: Trachea midline Cardiovascular: positive: Regular rate & rhythm Respiratory: positive: No respiratory distress, Diminished in bases Abdomen: positive: Non-tender, Soft Skin: positive: Dryness Extremities: positive: No pedal edema. negative: Full ROM (left shoulder tender to palpation at head of humerus; mild reduction in ROM; biztalk software developer equal no brusing or swelling noted), Calf tenderness Neurologic/Psychiatric: positive: Oriented x3, Mood/affect nml, Flat affect, Other (irritated with husbands constant interuptions) Palliative Care - POLST Patient has POLST: No POLST Status: Full Code Pain: Location (shoulder left; new), Severity (mod) Tiredness/Fatigue: Moderate (4-6) Drowsiness/Sedation: Mild (1-3) Nausea: None Anorexia: Mild (1-3) Dyspnea: Mild (1-3) Depression: Mild (1-3) Anxiety: Moderate (4-6) Feelings of wellbeing/Perceived Quality of Life: Fair, Acceptable, No change Sleep: Sleeps well Constipation: No Performance Status: Patient is mostly sedentary, is able to manage her own ADLs. She is still doing household tasks including cooking, laundry, but is pacing herself. She does tire easily. Her does do the breast which appears to be overwhelming and exhausting for him at age 86 - Palliative Care Discussion: There have been noted concerns regarding patient's noncompliance, and patient and 's ability to understand information. They have been somewhat floating out there by themselves, has very little insight, does appear to have his own cognitive issues and very difficult to focus on conversation not directed to him. This is very frustrating for the daughter Nanette, Elisha has 3 children and Eugenio he has 1 daughter. Nanette is stepped in to help with the medications, they do have a Mediset that reminds them to take the medications. She is wondering what other kind of resources, she does come from [place], she would like to participate more in the appointments to ask appropriate questions. When asked what the patient does, she reports she just goes along with the plan, and does not ask any questions because "they are the doctors". Gently discussed the seriousness of her illness, concerns for complications particularly as her counts continue to escalate, and the fact that they are living on their own with very little insight or ability to discern when urgent care needs to be accessed. They have not done any advanced care planning, by default at this point the [employer] of health state attorney would go to Greg. Nanette would like some support for being able to help her mom and planning for the future. Eugenio puts up multiple barriers, and is really not presenting with any understanding of what they currently have. He keeps saying they have a insurance on them, but cannot produce or identify what the insurance is for. Greg is from the [place], will reach out and see if Elisha is able to benefit for support in the future.Greg was very inappropriate several times with bursts of behavior talking about Nanette wanting to "control things" Nanette had offered their home up and support for living place several times, she was not trying to "force them" just provide an option. But she is concerned about the future, and with patient's 's inability to recognize or participate in patient's care needs. Greg is very defensive, he does watch her constantly, is at home, taking care of the household in the yard and is quite tired and overwhelmed at age 86. But is not willing to look at increased care needs. We did discuss having a plan for when things do start to get more difficult and putting this in place sooner than later. He continues to be somewhat suspicious and paranoid regarding participation. Results - Lab Results Lab results reviewed: Yes Impression and Recommendations - Palliative Care Impression: This is a 76-year-old woman who has essential thrombocytopenia since 08/2010, failed on oral agents due to forgetfulness and noncompliance, and currently receiving PEG interferon weekly with rising platelets though improved today. She presents with left shoulder pain today, unknown etiology we will continue to monitor. Daughter is hoping to come to some kind and plan in the near future for further support, but is meeting quite a bit of resistance from her stepfather. Palliative care setting rapport, introducing advanced care planning, role of coordination of care, and providing support for conversation regarding resources. Recommendations/Counseling Done: 1. Medication adherence. Nanette has been coming down weekly to help with setting up Mediset's, it provides both the medications and a reminder. Eugenio is supposed to be adding to support for medication adherence, though has very little understanding and/or interest in participating, patient also appears to have some resistance to having assist. 2. Essential Thrombocythemia. Patient did have a little dip today, have been concerned regarding injections being therapeutic. Discussed lifelong treatment for her current condition, with concerns for side effects. Introduced the sequela of worsening disease, including risk for clots. Will follow up further for expected prognosis with oncology. 3. Advanced care planning. Patient does need increased resources or at least explore what is available pending patient's ongoing decline. Patient has had some functional and cognitive decline and presents with increased care needs, has been presenting barriers for further support he appears quite fatigued as well and somewhat overwhelmed. Daughter is trying to provide support and is ready to barriers particularly around her stepfather's willingness to work as a "team". Counseling provided regarding palliative care role, goal to coordinate care with the daughter and patient and , will at least explore VA benefits, and introduced social work in the context of resources. Introduced ACP planning documents, setting goals of care, and need to set up DPOA. Has been having difficulty focusing on patient, wanting to redirect to his own story. This is very frustrating for the dynamics for patient's daughter. 75 minutes with greater than 50% of this done in counseling regarding disease process, anticipatory guidance, advanced care planning, resource management, coordination of care with oncology team
== END 2021-08-02 09:46 | disposition home or self-care (01) ==
LOC: PC 09:45
PROVIDERS: ATTEND Nurse Practitioner Adult Health
DX: Z51.5 Encounter for palliative care (principal); D69.3 Immune thrombocytopenic purpura; M25.512 Pain in left shoulder
CPT/HCPCS: 99345

== ENCOUNTER 2021-08-15 12:30 | Outpatient (CLI) | payer MEDICARE, OTHER ==
--- NOTE | 2021-08-15 16:22 | CONSULTATION NOTE ---
Palliative Care Follow Up - Referral Referring Provider: Jyoti Barrett PA-C Time of Visit: [id number] Referral setting: [facility] Referral Reason: Medication adherence/ET/Left Shoulder Pain - Information Sources Records reviewed: Previous records reviewed History/Review of Systems obtained from: Patient, Family (Greg at visit; follow up with Nanette daughter by phone) Exam limitations: Clinical condition (patient with poor STM/ as well) - History of Present Illness Update Brief HPI Update: This is a 76-year-old woman who has had a central thrombocytopenia anemia since 08/2010, JAK2 mutation positive. She has been on hydroxyurea since 06/2017, with frequent dose adjustments. Her records show she is currently on 1000 mg every day, unfortunately in follow-up with daughter, reports her understanding was that she was to discontinue both the hydroxyurea as well as a anagrelide when "shots" were initiated. She is currently on PEG interferon alpha weekly since . Her platelet count is starting to drift downwards, today she was 687,000, down from 718 last week. She continues with some persistent fatigue, reports some weight gain at 190.6, but has managed to continue with her regular activities though is quite sedentary nature. She does report continued persistent left shoulder pain, she does have point tenderness over the head of the humerus on palpation, she does have severe osteoarthritis in her hands. She reports acetaminophen does not provide her relief, but it is not interfering with her sleeping. Is mostly with activity that she notes this. It does continue on with a complex social situation, her Greg who is her second , continues to be quite defensive no having at age 86 significant amounts of complaints that he is working too hard. He is not willing though to allow increased help in the home, and often treats Elisha's daughter Nanette who is trying to help, with paranoia and defensiveness. She did try and allow her mother to do her medications, though very simple which is how we discovered the hydroxyurea was not still on her list, still was unable to manage.She will continue to fill Mediset, that does doing and remind her to take it frequently. I will clarify hydroxyurea question regarding if currently to continue. Past Medical History: Hypertension, high cholesterol, history of [place], MCI, GERD, history of splenic infarct, kidney stones, chronic vision loss, chronic sinusitis, depression, anxiety, osteoarthritis, chronic back pain. Past surgical history includes cholecystectomy, knee replacement, spine surgery, LEEP, coronary stent, cataracts, tonsil/adenectomy, skin cancer surgery Social History - Living Situation Living arrangement: At home Living Situation: With spouse/s.o. Support System: Patient lives at home with her Greg franz is a second . Elisha has 3 children, and Eugenio has 1 daughter. Nanette has stepped in to help with the medications but comes from [place]. They do have a Mediset that remind some of the medications. 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 Medications/Allergies - Medications Home Medications: Ambulatory Orders Medication Instructions Recorded Confirmed Simvastatin 20 mg PO QPM 10/18/15 08/16/21 Telmisartan [Micardis] 80 mg PO DAILY 10/18/15 08/16/21 Aspirin [Adult Aspirin Regimen] 81 mg PO DAILY 03/23/20 08/16/21 Sertraline [Zoloft] 50 mg PO DAILY 08/25/20 08/16/21 - Allergies Allergies/Adverse Reactions: Allergies Allergy/AdvReac Type Severity Reaction Status Date / Time Iodinated Contrast Media Allergy Severe Anaphylaxis Verified 06/13/21 15:49 Review of Systems - Constitutional Constitutional: reports: Fatigue, Weight gain (190.6). denies: Fever, Chills - Eyes Eyes: reports: Vision loss, Corrective lenses - Ears, Nose & Throat Ears, Nose & Throat: reports: Postnasal drainage - Cardiovascular Cardiovascular: reports: Lightheadedness (when bending over), Exertional dyspnea, Decr. exercise tolerance - Respiratory Respiratory: denies: Cough, SOB at rest - Gastrointestinal Gastrointestinal: reports: Good appetite. denies: Constipation, Diarrhea, Nausea - Musculoskeletal Musculoskeletal: reports: Stiffness, Joint pain (left shoulder) - Integumentary Integumentary: reports: Dryness - Neurological Neurological: reports: General weakness, Memory problems - Psychiatric Psychiatric: reports: Depression (mild) - Endocrine Endocrine: reports: Hypothyroidism - All Other Systems All Other Systems: reports: Reviewed and negative Physical Exam - Vital Signs Pulse Rate: 70 (sitting; 83 standing) Respiratory Rate: 18 Blood Pressure: 126/67 (sitting; 134/70 standning) - Physical Exam General Appearance: positive: No acute distress, Alert, Anxious (about husbands responses) Eyes Bilateral: positive: Normal inspection ENT: positive: No signs of dehydration Neck: positive: Trachea midline Cardiovascular: positive: Regular rate & rhythm Respiratory: positive: No respiratory distress, Breath sounds nml Abdomen: positive: Non-tender, Soft, Obese Skin: positive: Dryness Extremities: positive: Full ROM (left shoulder but tenderness to point palpation), No pedal edema Neurologic/Psychiatric: positive: Oriented x3, Mood/affect nml Palliative Care - POLST Patient has POLST: No Pain: Pain worsening, Location (left shoulder) Feelings of wellbeing/Perceived Quality of Life: Good, Acceptable, No change Sleep: Sleeps well Constipation: No Performance Status: Patient reports she does need frequent rest periods when she is cooking or doing household tasks. She still does the laundry in her own ADLs. She is quite sedentary at baseline, and does not see herself as having functional decline. - Palliative Care Discussion: Revisited with patient and , and attempt to set up rapport. tends to be quite defensive and with paranoia, establishing a relationship in the context of looking forward for future planning. They had not found a long- term care insurance and/or advanced directives. I had talked to the VA, only benefit from the VA for as spouse is $300 for paid caregiving, and they need to go through the hotel security officer. We discussed in the context of patient's making assumptions about Medicare/, reviewed only support would be to long-term care insurance and these policies differ as well as through Medicaid or private pay. Checked in with daughter, who has been on vacation, got home last night. She will go over and assist with medications. In our conversation realized that she is not been setting of the hydroxyurea, will clarified medication list with oncology. Results - Lab Results Lab results reviewed: Yes Lab and Imaging Results: Trends are decreasing platelets 687 from 718 last week, white count 6.6, RBC 4.3, hemoglobin 13.8 Impression and Recommendations - Palliative Care Impression: This is a 76-year-old woman who has had essential thrombocytopenia since 08/2010, failed on oral agents due to forgetfulness and noncompliance. She is currently receiving PEG interferon weekly with platelets improved today. There is concerned about long-term management for both patient and , secondary to cognitive deficits. Palliative care setting of rapport, introducing advanced care planning, role of coordination of care and providing support for conversation regarding resources. Recommendations/Counseling Done: 1. Medication adherence. Nanette is been coming down weekly to help set up Mediset's, provides both medications and a reminder. Patient has found the alarm on the Mediset helpful. In review of medication list, will need to clarify if patient still to be on hydroxyurea, reached out to oncology team. addendum: clarified with Jyoti Barrett PA-C, to be OFF hyroxyurea. 2. Essential thrombocythemia. Patient's platelets continue to decrease, patient with limited understanding of her disease process and treatment, but is coming to appointments regularly. 3. Advanced care planning. Patient will need increased resources, have started exploring what is pending. Patient most likely has a long-term care insurance, have requested they locate this to further identify if needs to move forward with Medicaid application. Daughter continues to try for support, and meets significant resistance with this. Counseling provided regarding framing how to work with patient situation in the context of both having cognitive deficits. Discussed may end up in crisis, do have MOTOR SETTER available, will await and see patient's response over the next few weeks and less declines or hits complications. 45 minutes with greater than 50% of this done in counseling regarding anticipatory guidance, goals of care, review of caregiving support resources in the future, addressing barriers in the context of team approach, also will clarify medications.
== END 2021-08-15 12:31 | disposition home or self-care (01) ==
LOC: PC 12:30
PROVIDERS: ATTEND Nurse Practitioner Adult Health
DX: Z51.5 Encounter for palliative care (principal); D69.6 Thrombocytopenia, unspecified; Z91.14 Patient's other noncompliance with medication regimen; Z79.899 Other long term (current) drug therapy
CPT/HCPCS: 99215

== ENCOUNTER 2021-10-04 11:10 | Outpatient (CLI) | payer MEDICARE, OTHER ==
--- NOTE | 2021-10-04 12:56 | CONSULTATION NOTE ---
Palliative Care Follow Up - Referral Referring Provider: Jyoti Barrett PA-C Time of Visit: [id number] Referral setting: Home Referral Reason: Dementia/dehydration/essential thrombocythemia - Information Sources Records reviewed: Previous records reviewed History/Review of Systems obtained from: Patient, Family ( Eugenio at visit; daughter called with concerns) Exam limitations: Clinical condition (patient with moderate short term memory deficits) - History of Present Illness Update Brief HPI Update: This is a 76-year-old woman with essential thrombocythemia since 08/2010, currently on Pegasys with platelets trending down. I had gotten a call from her daughter as patient had canceled her appointment Sunday, because she felt poorly. Asked patient about this, she reports she just had a headache and did not feel well, and was just "tired". She denied diarrhea, though when I spoke with daughter who expressed concern she reports that she had several episodes this last week, including nausea. She reports she has not had any vomiting but has had intermittent nausea. She does deny abdominal pain, her abdomen is soft no tenderness upon palpation. She is unable to recall her last bowel movements. She does appear slightly dehydrated, pale, and somewhat easily befuddled and trying to review her symptoms. Patient reports only eating 1-2 meals a day, she does have insight that she drinks coffee all day, she dislikes water. Daughter confirms that having her drink fluid has been a long-term struggle, they have tried multiple strategies but with her memory deficits and lack of insight has not been successful With my visit at 11, she had only had some coffee this morning, she is taking her pills on empty stomach. Her daughter asked me to check her new pill dispenser, they had not put the aspirin in it though had said they had as it was not available when she was there needed refill, unclear how long she has been not taking . Nanette had filled the medications on 09/23. Eugenio continues to be full of complaints and discontent, but did confirm that she has not been well for about a week. They had not made any kind of arrangements to reschedule appointments, and he is not participating in her care. Patient has very little insight into her memory deficits, her is upset with her because she talks to [employer]. He reports she gives information she should not, and she does not remember. Indeed during our visit she received 2 rubber insulator calls, when she did start the conversation until I asked her to hang up. They both have cell phones, but it is a poor telephone operator receptionist zone, but did express my concern. Past Medical History: Hypertension, high cholesterol, history of [place], MCI, GERD, history of splenic infarct, kidney stones, chronic vision loss chronic sinusitis, depression, anxiety, osteoarthritis, chronic back pain, Past surgical history includes cholecystectomy, knee replacement, spine surgery LEEP, coronary stent, cataracts, tonsil/adenectomy, skin cancer surgery Social History - Living Situation Living arrangement: At home Living Situation: With spouse/s.o. Support System: Patient lives at home with her second Greg, he is 88 years old. He appears to have some memory deficits as well and easily overwhelmed. He attempts to redirect conversation continuously to himself. Elisha has 3 childre n, Eugenio has 1 daughter. Nanette has expressed frustration as she is trying to help with the medications she comes from [place], Eugenio he gets very paranoid and often will not let her provide support. She does try and talk to her mother on the phone on a regular basis, she is concerned about current situation though does not feel she is unsafe but also into the future as she continues to decline. Revisited with Greg about long-term care insurance paperwork, has not done anything to follow through on this. Medications/Allergies - Medications Home Medications: Ambulatory Orders Medication Instructions Recorded Confirmed Simvastatin 20 mg PO QPM 10/18/15 10/05/21 Telmisartan [Micardis] 80 mg PO DAILY 10/18/15 10/05/21 Aspirin [Adult Aspirin Regimen] 81 mg PO DAILY 03/23/20 10/05/21 Sertraline [Zoloft] 50 mg PO DAILY 08/25/20 10/05/21 - Allergies Allergies/Adverse Reactions: Allergies Allergy/AdvReac Type Severity Reaction Status Date / Time Iodinated Contrast Media Allergy Severe Anaphylaxis Verified 06/13/21 15:49 Review of Systems - Constitutional Constitutional: reports: Fatigue ("feels tired all the time" unable to be more specific), Weakness, Poor appetite - Eyes Eyes: reports: Vision loss, Corrective lenses - Ears, Nose & Throat Ears, Nose & Throat: reports: Postnasal drainage - Cardiovascular Cardiovascular: reports: Lightheadedness, Exertional dyspnea, Decr. exercise tolerance - Respiratory Respiratory: reports: SOB with exertion. denies: Cough, SOB at rest - Gastrointestinal Gastrointestinal: reports: Nausea (intermittent; though decline medication; is taking meds on empty stomach), Poor appetite, Early satiety, Other (dehydration). denies: Abdominal pain, Abdominal distention, Diarrhea (denies but had reported to daughter twice in last couple of weeks) - Musculoskeletal Musculoskeletal: reports: Back pain, Stiffness, Joint pain - Integumentary Integumentary: reports: Dryness - Neurological Neurological: reports: General weakness, Memory problems (remain problematic; only recall in the moment; appears worsening; not confused; no insight into deficits) - Psychiatric Psychiatric: reports: Depression - Hematologic/Lymphatic Hematologic/Lymph: denies: Anemia - All Other Systems All Other Systems: reports: Other (limited with patients poor recall) Physical Exam - Vital Signs Temperature: 97.3 C Pulse Rate: 79 Respiratory Rate: 18 O2 Saturation: 96 (ra @ rest) Blood Pressure: 160/92 (sitting; 142/97 standing) - Physical Exam General Appearance: positive: Alert, Mild distress (unable to tell me any specifics other than feels poorly; unwilling to go get labs today; did agree to tomorrow), Anxious Eyes Bilateral: positive: Normal inspection ENT: negative: No signs of dehydration Neck: positive: Trachea midline Cardiovascular: positive: Regular rate & rhythm Respiratory: positive: No respiratory distress, Breath sounds nml Abdomen: positive: Non-tender, Soft, Obese Skin: positive: Dryness Extremities: positive: Full ROM, No pedal edema Neurologic/Psychiatric: positive: Mood/affect nml, Disoriented to time, Weakness, Flat affect Palliative Care - POLST Patient has POLST: No POLST Status: Full Code Pain: Pain unchanged, Location (mild lower back pain) Feelings of wellbeing/Perceived Quality of Life: Fair, Acceptable (patient feels this is temporary;) Sleep: Variable sleep pattern (reports woken up be early telemarketers) Performance Status: Patient is ambulatory, but quite sedentary in her home. She is less willing to go out, but had recently gone to [place] she found out quite overwhelming. She is currently meeting her ADL needs, she reports she is doing the cooking, she is often alone. - Palliative Care Discussion: Patient admits to feeling overwhelmed, they had recently had a water leak, Greg is quite distracted with this. There is quite a bit of bickering around the telemarketing, understanding on both parts, patient does not see an option is not answering the phone or engaging. Has been is very exasperated with her regarding this. Patient with very little insight need to be adherent and consistent with her appointments, difficult to get a sense of the severity of patient's symptoms, though does appear mostly dehydrated today. No acute issues at this time. Discussed again looking at engaging in some help or support, though unable to really identify what that would look like. Daughter is trying to come weekly just to spend time with her mother, and does help with the medications. There continues to be tension is Greg is quite defensive. Even in our visit today, with any questioning he gets somewhat distressed. Results - Lab Results Lab results reviewed: Yes Lab and Imaging Results: 09/26 platelets 423,000; 09/19 potassium 3.2 Impression and Recommendations - Palliative Care Impression: This is a 76-year-old woman who has essential thrombocythemia since 08/2010, failed on oral agents due to forgetfulness and noncompliance. She is currently receiving Pegasys, with improving platelets. Patient is experiencing most likely side effects as well as dehydration, difficult to track secondary to her cognitive deficits. Making home visit today secondary to canceling appointment and concern for medication adherence. Palliative care continue to provide support for coordination of care and long-term planning. Recommendations/Counseling Done: 1. Medication adherence. Nanette her daughter, has been feeling Mediset will that has a alarm on it. It does look like she has been using it appropriately, unfortunately they did not have the aspirin available for when she feels it, and have not filled it though they told her she did. It does appear the patient is taking them on an empty stomach, most likely adding to her nausea and discomfort. Have asked daughter to write on the Mediset, take with food. Patient declined a sticky note by myself. Patient has been reminded to take with food, or take with 1st meal of the day. 2. Essential thrombocythemia. Call to [facility], patient needing labs today, but defers until tomorrow. Follow-up to make sure she is getting a CMP given her low potassium on 09/19. Patient's platelets continue to decrease, patient and with limited understanding of her disease process and treatment. Counseling provided to review need to be compliant with visits. 3. Dehydration. Patient presents with signs and symptoms of dehydration, headache, orthostasis though higher blood pressures, patient is drinking significant bouts of coffee and does admit to disliking other fluids. Had her drink 12 ounces of water during visit, daughter reports this is a long-term problem. They have tried multiple different approaches, written instructions left. Patient does report nausea though denies at visit, did offer to order some nausea medication, at this point does not want it though left my phone number to call if does. I suspect it would be hard for her to remember if she took or not. Patient has been on omeprazole in the past, if continues low-grade nausea, may consider adding back again. 4. Dementia. Patient with worsening short-term memory deficits, is at high risk for being taken advantage of's secondary rubber insulator's. They had several calls during my visit. has some insight, but is just exacerbated with her. Patient picks up phone anyway. Nanette is going to look into finding a number block, is a do need the home phone secondary poor cell service. 5. Advanced care planning. Patient will need increased resources in the future, at this point in time unable to identify anything that would be of help other than companionship and oversight. reports they do have long-term care insurance and still have not identified this. This needs to be identified to be able to move forward on Medicaid application. Daughter continues to try and provide support meeting resistance. May need to enlist palliative care social work assistant support if patient continues to decline or continues to hit complications. 50 minutes with greater than 50% of this done in counseling regarding medication adherence, disease process, coordination of care and rescheduling appointments, follow-up with daughter and anticipatory guidance
== END 2021-10-04 11:11 | disposition home or self-care (01) ==
LOC: PC 11:10
PROVIDERS: ATTEND Nurse Practitioner Adult Health
DX: Z51.5 Encounter for palliative care (principal); D75.839 Thrombocytosis, unspecified; F03.90 Unspecified dementia, unspecified severity, without behavioral disturbance, psychotic disturbance, mood disturbance, and anxiety; E86.0 Dehydration; Z91.14 Patient's other noncompliance with medication regimen
CPT/HCPCS: 99349

== ENCOUNTER 2021-12-05 15:45 | Outpatient (CLI) | payer MEDICARE, OTHER ==
--- NOTE | 2021-12-05 19:18 | CONSULTATION NOTE ---
Palliative Care Follow Up - Referral Referring Provider: Jyoti Barrett PA-C Time of Visit: [phone] Referral setting: [facility] [place] Referral Reason: Essential - Information Sources Records reviewed: Previous records reviewed History/Review of Systems obtained from: Patient, Family (daughter Nanette) Exam limitations: Clinical condition (significant STM memory issues) - History of Present Illness Update Brief HPI Update: This is a 76-year-old woman with essential thrombocythemia since 08/2010, currently on Pegasys with platelets trending down, 500,000 today. This is a very complex social situation, in the context patient has fairly severe short- term memory deficits with very little insight, and elderly with mild deficits as well and unable to really provide oversight of primary care. He is also quite obstructive as far as allowing daughter to provide more support. Patient had canceled appointment both on 11/28 and 12/02. Did reach out to daughter today to help facilitate appointment and to bring in medications to follow-up on adherence. Daughter had set up [employer]iwheel to help patient be more compliant. P divya has no insight that she is not filling it correctly, and at visit today reports she has been taking it from her bottles, though does need refills and is unclear which she needs. When discussed with patient her reasons for canceling, she reports "I just did not feel good" unable to quantify, identify any specific symptoms, nor remembered she had canceled. Daughter had called, and stop by to visit, did not even know she had rescheduled appointment, so she was able to bring her in and participate today as he was not prepared to bring her in. Patient appears quite pale, tired, with further weight loss. No acute findings of distress, though complains of severe fatigue. Denies nausea, reports she is eating, though daughter suspects she has continued issues around dehydration. Patient is not worried about any of this, and somewhat perplexed by the concern. She does identify she is mostly sedentary, is doing some household tasks, but less than she has in the past. She reports "I am just being lazy" but does appear she has activity intolerance. Past Medical History: Hypertension, high cholesterol, history of [place], MCI, GERD, history of splenic infarct, kidney stones, chronic vision loss, chronic sinusitis,, anxiety, osteoarthritis, chronic back pain Postsurgical history includes cholecystectomy, knee replacement, spine surgery, LEEP, coronary stent, cataracts, tonsils/adenectomy, skin cancer surgery Social History - Living Situation Living arrangement: At home Living Situation: With spouse/s.o. Support System: Is at home with her second Greg, he is 88 years old with his own health problems. He to has memory deficits and easily overwhelmed. Elisha has 3 children, Eugenio has 1 daughter. Nanette has expressed frustration as she continues to try and offer support, is obstructed by Eugenio he gets very paranoid and often will not allow her to participate. She does try and talk to her mother on the phone on a regular basis, continues to worry about how they are coping, though mother does not seem perplexed by this. Nanette is going to try and find a long-term care insurance, daughter has been more than willing to provide more support that has not been welcomed. Medications/Allergies - Medications Home Medications: Ambulatory Orders Medication Instructions Recorded Confirmed Simvastatin 20 mg PO QPM 10/18/15 12/05/21 Telmisartan [Micardis] 80 mg PO DAILY 10/18/15 12/05/21 Aspirin [Adult Aspirin Regimen] 81 mg PO DAILY 03/23/20 12/05/21 Sertraline [Zoloft] 50 mg PO DAILY 08/25/20 12/05/21 Omeprazole Magnesium 20 mg PO DAILY 12/05/21 12/05/21 - Allergies Allergies/Adverse Reactions: Allergies Allergy/AdvReac Type Severity Reaction Status Date / Time Iodinated Contrast Media Allergy Severe Anaphylaxis Verified 06/13/21 15:49 Review of Systems - Constitutional Constitutional: reports: Fatigue, Weakness, Poor appetite, Weight loss - Eyes Eyes: reports: Vision loss, Corrective lenses - Ears, Nose & Throat Ears, Nose & Throat: reports: Postnasal drainage - Cardiovascular Cardiovascular: reports: Lightheadedness, Exertional dyspnea, Decr. exercise tolerance - Respiratory Respiratory: reports: SOB with exertion - Gastrointestinal Gastrointestinal: reports: Nausea, Reflux/heartburn, Poor appetite, Early satiety - Musculoskeletal Musculoskeletal: reports: Back pain, Stiffness, Joint pain - Integumentary Integumentary: reports: Dryness - Neurological Neurological: reports: General weakness, Memory problems (remain problematic; only recall in the moment; appears worsening; not confused; no insight into deficits) - Psychiatric Psychiatric: reports: Depression - Endocrine Endocrine: reports: Hypothyroidism - All Other Systems All Other Systems: reports: Other (limited ROS) Physical Exam - Vital Signs Temperature: 36.2 C Pulse Rate: 89 Respiratory Rate: 18 O2 Saturation: 98 Blood Pressure: 163/86 - Physical Exam General Appearance: positive: Alert, Anxious, Other (appears fatigued) Eyes Bilateral: positive: Normal inspection, No scleral icterus Neck: positive: Trachea midline Cardiovascular: positive: Regular rate & rhythm Respiratory: positive: Diminished in bases. negative: Wheezes Abdomen: positive: Soft Skin: positive: Pallor, Dryness Extremities: positive: No pedal edema Neurologic/Psychiatric: positive: Mood/affect nml, Disoriented to time, Weakness, Flat affect Palliative Care - POLST Patient has POLST: No Pain: No pain Tiredness/Fatigue: Moderate (4-6) Drowsiness/Sedation: Mild (1-3) Nausea: Mild (1-3) Anorexia: Mild (1-3) Dyspnea: Mild (1-3) Depression: Mild (1-3) Anxiety: Moderate (4-6) Feelings of wellbeing/Perceived Quality of Life: Fair, Acceptable, No change Sleep: Sleeps well Constipation: No Performance Status: Patient is ambulatory, though does describe having some functional decline in the context that she is more fatigued with any activity. She reports she is sitting most of her time in recliner, is unable to identify what has changed, denies dizziness, suspect it is muscle weakness. - Palliative Care Discussion: When asked patient what her understanding of her disease is, she does states she has too many white blood cell counts, when she was corrected for platelets she said yes I understand that. I do understand what the implications of this are, she does understand she could have clots, we discussed that could mean a stroke or she had identified "heart attack". Tried to reinforce even though patient is not "feeling good" still needs to come in and get her treatment on a regular basis, agreed to enlist the help of her daughter Nanette, she will get a list of her appointments as well also to at least be able to remind them if she cannot help facilitate transportation. Patient continues to feel quite poorly, unable to identify specific symptoms, concern about medication adherence and patient's coping at home. At this point in time patient is not distressed by this, but it is very distressing to daughter. We will continue to support patient as best can, though many limitat ions and concerns regarding the complexity of the situation. Results - Lab Results Lab results reviewed: Yes Impression and Recommendations - Palliative Care Impression: This is a 76-year-old woman with essential thrombocythemia, failed on oral agents due to forgetfulness and noncompliance. She is currently receiving Pegasys with improving platelet counts. Patient is very difficult to track and elicit side effects, secondary to her short-term memory and cognitive deficits. Patient continues to cancel appointments, and is unable to really identify why. Meeting with daughter today, after counseling last week. Palliative care continue provide support for coordination of care and long-term planing. Recommendations/Counseling Done: 1. Medication adherence. Nanette her daughter has been filling the medicine that has alarm on her, but she is not using it per her report. She reports she is taking her meds from the bottles though does admit needs some refills, and cannot recall what those are. Patient is taking on empty stomach, unclear if she has corrected this. Patient has been reminded to take with food. We will go ahead and add omeprazole 20 mg, has described GERD in the past. Denies outright nausea or vomiting. It is very hard to elicit symptoms as she cannot recall. Reordered medications from [facility] for 90 days, to decrease need for refills. 2. Essential thrombocythemia. Patient continues with difficulty being compliant with visits, was not aware had an appointment today, daughter had picked her up and taken her, was unaware as well. Counseling provided regarding importance of being compliant with ongoing treatment, patient somewhat perplexing difficulty remembering why she canceled. 3. Dehydration. Patient continues to be challenged with fluid intake, there have been multiple approaches tried. Reassured needs to continue to be diligent in getting increase fluids. 4. Dementia. Patient does present with worsening short-term memory deficits, this often provides a barrier as far as being compliant with treatment and appointments. gets quite exacerbated with patient, has not been helpful as far as providing support for compliance. Patient encouraged to reach out to daughter, friends, family daily to decrease isolation. Patient denies persistent depression though is unable to really explain patient's listlessness and feelings "being lazy". Patient often does not answer phone when family calls, though will engage easily with telemarketers, is quite frustrating to family. 5. Advance care planning. Patient will need increased resources most likely in the near future, have been asking to see long-term care insurance to see about long-term planning. Unfortunately has been quite resistant to providing any information, making it difficult to consider whether would be appropriate for Medicaid application. Daughter continues to provide support but is meeting resistance. Will enlist palliative care social services aide if patient continues to decline or continue to hit barriers. 45 minutes with greater than 50% of this spent in counseling regarding medication adherence, attempting to elicit symptoms and barriers for compliance for appointments, patient does have complex social situation, continuing to provide anticipatory guidance and support as accepted.
== END 2021-12-05 15:46 | disposition home or self-care (01) ==
LOC: PC 15:45
PROVIDERS: ATTEND Nurse Practitioner Adult Health
DX: Z51.5 Encounter for palliative care (principal); Z91.14 Patient's other noncompliance with medication regimen; D69.3 Immune thrombocytopenic purpura; E86.0 Dehydration; F03.90 Unspecified dementia, unspecified severity, without behavioral disturbance, psychotic disturbance, mood disturbance, and anxiety
CPT/HCPCS: 99215

== ENCOUNTER 2021-12-19 14:27 | Emergency (ER) | payer MEDICARE, OTHER ==
--- NOTE | 2021-12-19 14:52 | ED Physician Documentation ---
PD HPI ABD PAIN - Stated complaint Stated Complaint: C+ EXP / ABD PAIN - History obtained from History obtained from: Patient - History of Present Illness Timing - onset: How many days ago (2) Timing - duration: Days (2) Timing - details: Gradual onset (having nausea and abd intermittent cramps, along with loose stool diarrhea for couple of days. Has had some bloating for couple of weeks. Her has URI/nausea and Dx COVID about 5-6 days ago. Patient having malaise, chills, some cough 2 days, along with the nausea and loose stools.), Still present, Waxing and waning Quality: Cramping, Aching Location: All over / everywhere Radiation: No: Chest, Lower back Associated symptoms: Fever, Nausea, Diarrhea, Loss of appetite. No: Vomiting, Near syncope / syncope Similar symptoms before: Has not had sx before Recently seen: Not recently seen Review of Systems Constitutional: reports: Fever, Chills (2 days), Myalgias Nose: reports: Congestion. denies: Rhinorrhea / runny nose Throat: reports: Sore throat Cardiac: denies: Chest pain / pressure Respiratory: reports: Cough. denies: Dyspnea GI: reports: Abdominal Pain, Nausea, Diarrhea. denies: Vomiting Skin: denies: Rash Neurologic: reports: Generalized weakness. 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: LEEP (Cervical surgery) Cardiovascular: Coronary stent HEENT: Cataracts, Tonsil/Adenoidectomy Derm: Skin cancer surgery - Present Medications Home Medications: Ambulatory Orders Medication Instructions Recorded Confirmed Simvastatin 20 mg PO QPM 10/18/15 12/19/21 Telmisartan [Micardis] 80 mg PO DAILY 10/18/15 12/19/21 Aspirin [Adult Aspirin Regimen] 81 mg PO DAILY 03/23/20 12/19/21 Sertraline [Zoloft] 50 mg PO DAILY 08/25/20 12/19/21 Omeprazole Magnesium 20 mg PO DAILY 12/05/21 12/19/21 Ondansetron Odt [Zofran] 4 mg TL Q6H PRN #10 tablet 12/19/21 - Allergies Allergies/Adverse Reactions: Allergies Allergy/AdvReac Type Severity Reaction Status Date / Time Iodinated Contrast Media Allergy Severe Anaphylaxis Verified 12/19/21 15:12 - Social History Does the pt smoke?: No Smoking Status: Never smoker Does the pt drink ETOH?: No Does the pt have substance abuse?: No - Immunizations Immunizations are current?: Yes Immunizations: TDAP >10years/unknown - POLST Patient has POLST: No PD ED PE NORMAL - Vitals Vital signs reviewed: Yes - General General: Alert and oriented X 3, No acute distress, Well developed/nourished - HEENT HEENT: Moist mucous membranes, Pharynx benign - Neck Neck: Supple, no meningeal sign, No adenopathy - Cardiac Cardiac: RRR, No murmur - Respiratory Respiratory: Clear bilaterally - Abdomen Abdomen: Normal bowel sounds, Soft, Non tender, Non distended - Back Back: No CVA TTP - Derm Derm: Normal color, Warm and dry - Extremities Extremities: No edema, No calf tenderness / cord - Neuro Neuro: Alert and oriented X 3, No motor deficit, Normal speech Results - Vitals Vitals: Vital Signs - 24 hr 12/19/21 12/19/21 15:12 15:52 Temperature 36.3 C L Heart Rate 84 77 Respiratory 18 18 Rate Blood Pressure 196/78 H 168/72 H O2 Saturation 97 95 Oxygen O2 Source Room air PD MEDICAL DECISION MAKING - ED course Complexity details: considered differential (no consistent nor local abd pain and not tender. Mainly nausea in conjunction with likely COVID infection. ), d/w patient Departure - Departure Disposition: Home, Self Care Clinical Impression: Nausea, Malaise and fatigue, Exposure to COVID-19 virus Condition: Stable Follow-Up: Vidal Chan DO [Primary Care Provider] - Prescriptions: Ondansetron Odt [Zofran] 4 mg TL Q6H PRN #10 tablet PRN Reason: Nausea / Vomiting Comments: Try to stay well-hydrated with frequent fluids. Use ondansetron if needed for nausea. Tylenol if needed for pains or aches or fever. Your symptoms do sound likely to be Covid related. Your Covid test should res ult in the next day or 2. At this point I would presume you likely have it given your close exposure to your . See how you do regarding breathing cough etc. There have been a lot of intestin al symptoms with the latest round of Covid so the nausea and some abdominal bloating are relatively common with that. Recheck if worsening over the next several days and return if worse. Discharge Date/Time: 12/19/21 16:25
[2021-12-19] MEDS ORDERED: MAG HYDROX/AL HYDROX/SIMETH 30 ML UDC PO STA (15:14)
[2021-12-19] MEDS ORDERED: ACETAMINOPHEN 325 MG TABLET PO STA (15:14)
[2021-12-19] MEDS ORDERED: ONDANSETRON ODT 4 MG TABLET TL STA (15:14)
[2021-12-19 15:52] VITALS: BP 168/72
== END 2021-12-19 16:25 | disposition home or self-care (01) ==
LOC: ED 14:27
DX: U07.1 COVID-19 (principal); I10 Essential (primary) hypertension
CPT/HCPCS: 99283; A9270; Q0162; U0004

== ENCOUNTER 2021-12-23 13:00 | Outpatient (CLI) | payer MEDICARE, OTHER ==
--- NOTE | 2021-12-23 14:17 | CONSULTATION NOTE ---
Palliative Care Follow Up - Referral Referring Provider: Jyoti Barrett PA-C Time of Visit: [id number] Referral setting: Home Referral Reason: COVID/Medication adherence/Dementia - Information Sources Records reviewed: Previous records reviewed History/Review of Systems obtained from: Patient Exam limitations: Clinical condition (patient with severe STM deficits) - History of Present Illness Update Brief HPI Update: This is a 76-year-old woman who has had a difficult course with her essential thrombocythemia, currently Pegasys.She does have dementia, most likely vascular in nature, given her history. She has severe short-term memory deficits with very little insight, and elderly with mild deficits and unable to provide oversight. Daughters and family have been trying to piece things together, which is got more complicated now that both of them have Covid. had gone to [facility], and treated for UTI and Covid and has been essentially mostly bedbound. Had offered to check and make sure he is doing okay during visit with , she was quite insistent he was fine and requested I not see him. He had been up a couple times and was drinking water, she did use to call 911 if he worsen. She herself reports she is starting to feel better, though has persistent headache, reports diarrhea has improved and no further bouts today. She is complaining of nausea, did give her an ondansetron which has been ordered from the ED. Patient does not have the wherewithal to be able to take this as needed, she reports she did have a little bit of tomato soup, I did have her drink 16 ounces of water while I was there.She does present a little tachy at a pulse of 102, her blood pressure though was 132/64, standing 122/62. Her temp is 97 2, with a sat of 98%, her lungs are clear and no cough. She reports she is sleeping fairly well, does have some achy joints particularly her knees. Reviewed with patient my concerns regarding their care care situation, asked her if patient had to go to the hospital or be placed in a fdc what her plans would be. She reports she does have family that would come stay with her, and would go live with her daughter. When asked her about her memory, she reports that she is just forgetful at age 76, has no insight into this. Spoke with daughter Nanette, reports both sisters call frequently, and both get different sets of information. In fact patient had allowed me to come as what she told her so I could check on Eugenio, and now she was not allowing me to see him.Given he is not my patient I cannot really force the issue, but did express my concern, and his daughter will come check on him later.I am concerned patient would not recognize if patient needed urgent or emergent help. Eugenio himself is somewhat stubborn and often has poor decision-making ability, though Elisha says he is not confused. Past Medical History: Hypertension, high cholesterol, history of RI, MCI, GERD, history of splenic infarct, kidney stones, chronic vision loss, chronic sinusitis, anxiety, osteoarthritis, chronic back pain, surgical history includes cholecystectomy, knee replacement bilateral spine surgery LEEP coronary stent cataracts tonsils/adenectomy, skin cancer surgery Social History - Living Situation Living arrangement: At home Living Situation: With spouse/s.o. Support System: Patient lives at home with her second Greg, he is 88 years old with his own health problems and now is quite ill and needing assistance. He has memory deficit and is easily overwhelmed, Elisha herself has 3 children, Eugenio has 1 daughter. Nanette is the one who is been working with Elisha to try and help with medication management, management of her current Covid situation, and checking in with her mother frequently to make sure she is drinking and taking meds. She is working with palliative care social insurance analyst, regarding getting DPOA, as well as trying to access and find out about long-term care insurance. Medications/Allergies - Medications Home Medications: Ambulatory Orders Medication Instructions Recorded Confirmed Simvastatin 20 mg PO QPM 10/18/15 12/19/21 Telmisartan [Micardis] 80 mg PO DAILY 10/18/15 12/19/21 Aspirin [Adult Aspirin Regimen] 81 mg PO DAILY 03/23/20 12/19/21 Sertraline [Zoloft] 50 mg PO DAILY 08/25/20 12/19/21 Omeprazole Magnesium 20 mg PO DAILY 12/05/21 12/19/21 Ondansetron Odt [Zofran] 4 mg TL Q6H PRN #10 tablet 12/19/21 - Allergies Allergies/Adverse Reactions: Allergies Allergy/AdvReac Type Severity Reaction Status Date / Time Iodinated Contrast Media Allergy Severe Anaphylaxis Verified 12/19/21 15:12 Review of Systems - Constitutional Constitutional: reports: Fatigue (persistent), Weakness, Poor appetite, Weight loss - Eyes Eyes: reports: Vision loss, Corrective lenses - Ears, Nose & Throat Ears, Nose & Throat: reports: Dry mouth. denies: Sore throat - Cardiovascular Cardiovascular: reports: Lightheadedness, Exertional dyspnea, Decr. exercise tolerance - Respiratory Respiratory: reports: SOB with exertion - Gastrointestinal Gastrointestinal: reports: Nausea, Poor appetite, Early satiety. denies: Diarrhea (denies diarrhea today; but had several days as well as fluctuating diarrhea most likely as a side effect of Pegys) - Musculoskeletal Musculoskeletal: reports: Back pain, Stiffness, Joint pain - Integumentary Integumentary: reports: Dryness - Neurological Neurological: reports: General weakness, Memory problems (remain problematic; only recall in the moment; appears worsening; not confused; no insight into deficits) - Psychiatric Psychiatric: reports: Depression - Endocrine Endocrine: reports: Hypothyroidism - Hematologic/Lymphatic Hematologic/Lymph: reports: Other (currently COVID positive) - All Other Systems All Other Systems: reports: Other (limited ROS) Physical Exam - Vital Signs Temperature: 97.2 C Pulse Rate: 102 Respiratory Rate: 16 O2 Saturation: 98 Blood Pressure: 132/64 (sitting; 122/62 standing ) - Physical Exam General Appearance: positive: Alert, Anxious, Other (appears fatigued) Eyes Bilateral: positive: Normal inspection, No scleral icterus ENT: negative: No signs of dehydration (poor skin turgor; pale;) Neck: positive: Trachea midline Cardiovascular: positive: Regular rate & rhythm, Tachycardia Respiratory: positive: No respiratory distress, Diminished in bases. negative: Wheezes, Rales, Rhonchi Abdomen: positive: Soft Skin: positive: Pallor, Dryness Extremities: positive: No pedal edema Neurologic/Psychiatric: positive: Mood/affect nml, Disoriented to time, Weakness, Flat affect Palliative Care - POLST Patient has POLST: No POLST Status: Full Code Pain: Pain unchanged, Location (bilateral knee discomfort; feels achey everywhere) Feelings of wellbeing/Perceived Quality of Life: Fair, Acceptable, Worsening (acutely ill; "its the pits") Sleep: Variable sleep pattern Constipation: No Performance Status: Patient does not appear showered, reports she had showered yesterday and showers daily. Unclear if this is truthful information. She is ambulatory, though needs to sit frequently because she is "exhausted" suspect it has more to do with dehydration. Patient has been doing some dishes and meal prep as far as soups, and "waiting on her ". - Palliative Care Discussion: Explored with patient my concerns regarding how frail she and her were, and this was an example of how tenuous his current situation is. We did discuss if Eugenio were to have to go to the hospital what she would do, she reports she has a granddaughter or family that would come stay with her. She does admit she would not be able to be alone. We did discuss if Eugenio were to end up in a fdc or unable to help care for her, what was her plan, she reports she is going to move in with her daughter as she has a [id number] apartment. She is not seeing that she can stay in her current situation, reports her is a hoarder, and there are just sheds full of stuff back there but does feel like her family would help her out.When asked if she would call if she needed help, she does not like to "bother people" though her daughters and Theresa daughter are checking on them regularly. Patient has very little insight into the seriousness of her current condition or her memory issues, would benefit from having more oversight. Impression and Recommendations - Palliative Care Impression: This is a 76-year-old woman with essential thrombocythemia, failed on oral agents due to forgetfulness and noncompliance. She is currently receiving Pegasys with some improvement in her platelet counts, though continues to be very complex and trying to tease out side effects, secondary short-term memory and cognitive deficits. Patient continues to cancel appointments unable to identify why, she is still having trouble with medication adherence, and very little understanding of her current disease process. Palliative care trying to continue to provide support for symptom management and coordination of care as well as long-term planning. Recommendations/Counseling Done: 1. Covid. Palliative care GRANITE SETTER making home visit secondary to concerns of patient's deterioration. Patient does appear slightly dehydrated, but is functional, increasing acute confusion, was able to drink 16 ounces of fluid while was there. She reports no further diarrhea, though is complaining of nausea. Given ondansetron at visit. Wrote out instructions for ondansetron 3 times a day through the weekend, put on her pillbox. Unclear if patient will remember, daughter will provide reminders. She is having persistent headache, reports it did not respond to acetaminophen. We discussed part of this certainly could be related to her dehydration as well. Her is quite ill, but is unwilling to let me examine or check on him, this was reported to her daughter and his daughter will come check on him. 2. Essential thrombocythemia. Patient continues to have difficulty being compliant with scheduled visits, have made arrangements and hopefully reminder and scheduling, to notify daughter Nanette Keenan [phone] and she will help them navigate appointments. Did reach out to Dr. Rodríguez regarding next appointment, reports she should have treatment on 01/02, labs this next week. Lab slip left, with instructions to go [facility] by mid week for follow-up. 3. Dehydration. Patient continues to be challenged with fluid intake, this is multifactorial. Did have patient drink 16 ounces of fluid while he was there, encouraged her, filled her water bottle, daughters are calling and reminding her as well. 4. Dementia. Patient does continue to present with worsening short-term memory deficits, provides a barrier as far as being compliant with medications, treatments and appointments. Patient often does not answer the phone, though is being more diligent with the multiple check on rounds related to their acute illness currently. Patient does appear to be improving and not worsening, will have family continue to call with reminders and screen for worsening symptoms. 5. Advanced care planning. Patient will need increased resources most likely in the near future, they were able to locate long-term care insurance. Medical palliative care social insurance analyst has been talking to Nanette, will provide DPOA forms. Daughter continues to provide support but is meeting quite a bit of resistance from , and Elisha defers to him.Patient would most likely benefit from being in assisted living or other supervised situation, she is quite social and is isolated in her current situation. 45 minutes with greater than 50% of this done in counseling, and follow-up regarding acute illness, coordination of care with oncology team, coordination of care with family for support. N95 and appropriate PPE worn in home setting.
== END 2021-12-23 13:01 | disposition home or self-care (01) ==
LOC: PC 13:00
PROVIDERS: ATTEND Nurse Practitioner Adult Health
DX: Z51.5 Encounter for palliative care (principal); U07.1 COVID-19; D69.3 Immune thrombocytopenic purpura; E86.0 Dehydration; F03.90 Unspecified dementia, unspecified severity, without behavioral disturbance, psychotic disturbance, mood disturbance, and anxiety
CPT/HCPCS: 99349

== ENCOUNTER 2021-12-26 13:38 | Outpatient (CLI) | payer MEDICARE, OTHER ==
[2021-12-26 13:53] LABS: BASOPHILS % (AUTO) 0.3 %; EOSINOPHILS # (AUTO) 0.1 10^3/uL (0.0-0.7); EOSINOPHILS % (AUTO) 1.1 %; HCT - HEMATOCRIT 41.8 % (37.0-47.0); HGB - HEMOGLOBIN 14.1 g/dL (12.0-16.0); LYMPHOCYTES # (AUTO) 0.6 10^3/uL (1.5-3.5); LYMPHOCYTES % (AUTO) 7.5 %; MEAN CORPUSCULAR HGB CONC 33.7 g/dL (32.0-36.0); MEAN CORPUSCULAR VOLUME 88.9 fL (81.0-99.0); MEAN PLATELET VOLUME 10.6 fL (7.9-10.8); MONOCYTES # (AUTO) 0.5 10^3/uL (0.0-1.0); MONOCYTES % (AUTO) 6.4 %; NEUTROPHILS # (AUTO) 6.2 10^3/uL (1.5-6.6); NEUTROPHILS % (AUTO) 84.3 %; PLT - PLATELET COUNT 509 10^3/uL (130-450); RED CELL DISTRIBUTION WIDTH 15.4 % (12.0-15.0); WHITE BLOOD COUNT 7.4 x10^3/uL (4.8-10.8)
[2021-12-26 14:04] LABS: ALBUMIN 4.3 g/dL (3.2-5.5); ALBUMIN/GLOBULIN RATIO 1.7 (1.0-2.2); BILIRUBIN,TOTAL 1.3 mg/dL (0.2-1.0); CREATININE 0.8 mg/dL (0.4-1.0); POTASSIUM 3.8 mmol/L (3.5-5.0); TOTAL PROTEIN 6.8 g/dL (6.7-8.2)
== END 2021-12-26 13:39 | disposition home or self-care (01) ==
LOC: LAB 13:38
PROVIDERS: ATTEND Nurse Practitioner Adult Health
DX: D47.3 Essential (hemorrhagic) thrombocythemia (principal); Z79.899 Other long term (current) drug therapy
CPT/HCPCS: 36415; 80053; 85025